=== PATIENT | female | born 1970 | race Caucasian/White ===

== ENCOUNTER 2017-11-20 10:48 | Outpatient (CLI) | payer MEDICAID ==
[2017-11-20 12:38] LABS: BASOPHILS # (AUTO) 0.1 10^3/uL (0.0-0.1); BASOPHILS % (AUTO) 0.8 %; EOSINOPHILS # (AUTO) 0.2 10^3/uL (0.0-0.7); EOSINOPHILS % (AUTO) 2.2 %; HGB - HEMOGLOBIN 14.9 g/dL (12.0-16.0); LYMPHOCYTES % (AUTO) 36.1 %; MEAN CORPUSCULAR HGB CONC 34.4 g/dL (32.0-36.0); MEAN CORPUSCULAR VOLUME 101.7 fL (81.0-99.0); MEAN PLATELET VOLUME 8.1 fL (7.9-10.8); MONOCYTES # (AUTO) 0.9 10^3/uL (0.0-1.0); MONOCYTES % (AUTO) 8.2 %; NEUTROPHILS # (AUTO) 5.9 10^3/uL (1.5-6.6); NEUTROPHILS % (AUTO) 52.7 %; PLT - PLATELET COUNT 267 10^3/uL (130-450); RED BLOOD COUNT 4.27 10^6/uL (4.20-5.40); RED CELL DISTRIBUTION WIDTH 13.4 % (12.0-15.0); WHITE BLOOD COUNT 11.1 x10^3/uL (4.8-10.8)
[2017-11-20 13:00] LABS: ALBUMIN 4.4 g/dL (3.2-5.5); ALBUMIN/GLOBULIN RATIO 1.3 (1.0-2.2); ALKALINE PHOSPHATASE 80 IU/L (42-121); ALT ALANINE AMINOTRANSFERASE 87 IU/L (10-60); AST ASPARTATE AMINOTRANSFERASE 59 IU/L (10-42); BILIRUBIN,TOTAL 0.9 mg/dL (0.2-1.0); BUN - BLOOD UREA NITROGEN 21 mg/dL (6-20); CALCIUM 9.2 mg/dL (8.5-10.3); CARBON DIOXIDE - CO2 23 mmol/L (21-32); CHLORIDE 104 mmol/L (101-111); CHOL/HDL RATIO 4.6 (<4.4); CHOLESTEROL 306 mg/dL; CREATININE 0.8 mg/dL (0.4-1.0); GFR - MDRD 77 (>89); GLUCOSE 92 mg/dL (70-100); HDL CHOLESTEROL 67 mg/dL; LDL CHOLESTEROL,CALCULATED 205 mg/dL; LDL/HDL RATIO 3.1 (<4.4); SODIUM 136 mmol/L (135-145); TOTAL PROTEIN 7.7 g/dL (6.7-8.2); VLDL CHOLESTEROL 34 mg/dL
== END 2017-11-20 10:49 | disposition home or self-care (01) ==
LOC: LAB.N 10:48
PROVIDERS: ATTEND Nurse Practitioner Gerontology
DX: E78.5 Hyperlipidemia, unspecified (principal); I10 Essential (primary) hypertension
CPT/HCPCS: 36415; 80050; 80061; 83721

== ENCOUNTER 2018-08-27 08:00 | Outpatient (CLI) | payer MEDICAID ==
[2018-08-27 13:22] LABS: BASOPHILS # (AUTO) 0.1 10^3/uL (0.0-0.1); BASOPHILS % (AUTO) 0.8 %; EOSINOPHILS # (AUTO) 0.3 10^3/uL (0.0-0.7); EOSINOPHILS % (AUTO) 2.4 %; HGB - HEMOGLOBIN 14.8 g/dL (12.0-16.0); LYMPHOCYTES # (AUTO) 3.9 10^3/uL (1.5-3.5); LYMPHOCYTES % (AUTO) 30.6 %; MEAN CORPUSCULAR HEMOGLOBIN 35.3 pg (27.0-31.0); MEAN CORPUSCULAR HGB CONC 34.7 g/dL (32.0-36.0); MEAN CORPUSCULAR VOLUME 101.6 fL (81.0-99.0); MEAN PLATELET VOLUME 8.5 fL (7.9-10.8); MONOCYTES # (AUTO) 1.1 10^3/uL (0.0-1.0); MONOCYTES % (AUTO) 8.9 %; NEUTROPHILS # (AUTO) 7.3 10^3/uL (1.5-6.6); NEUTROPHILS % (AUTO) 57.3 %; PLT - PLATELET COUNT 299 10^3/uL (130-450); RED CELL DISTRIBUTION WIDTH 13.9 % (12.0-15.0); WHITE BLOOD COUNT 12.8 x10^3/uL (4.8-10.8)
[2018-08-27 13:46] LABS: ALBUMIN 4.4 g/dL (3.2-5.5); ALBUMIN/GLOBULIN RATIO 1.3 (1.0-2.2); ALKALINE PHOSPHATASE 80 IU/L (42-121); ALT ALANINE AMINOTRANSFERASE 132 IU/L (10-60); AST ASPARTATE AMINOTRANSFERASE 81 IU/L (10-42); BILIRUBIN,TOTAL 0.7 mg/dL (0.2-1.0); BUN - BLOOD UREA NITROGEN 25 mg/dL (6-20); CALCIUM 9.7 mg/dL (8.5-10.3); CARBON DIOXIDE - CO2 21 mmol/L (21-32); CHLORIDE 107 mmol/L (101-111); CHOL/HDL RATIO 4.8 (<4.4); CHOLESTEROL 298 mg/dL; CREATININE 0.8 mg/dL (0.4-1.0); GFR - MDRD 76 (>89); GLUCOSE 111 mg/dL (70-100); HDL CHOLESTEROL 62 mg/dL; LDL CHOLESTEROL,CALCULATED 200 mg/dL; LDL/HDL RATIO 3.2 (<4.4); SODIUM 139 mmol/L (135-145); TOTAL PROTEIN 7.8 g/dL (6.7-8.2); VLDL CHOLESTEROL 36 mg/dL
== END 2018-08-27 23:59 | disposition home or self-care (01) ==
LOC: LAB.N 08:00
PROVIDERS: ATTEND Nurse Practitioner Gerontology
DX: R74.8 Abnormal levels of other serum enzymes (principal); F10.20 Alcohol dependence, uncomplicated; D53.9 Nutritional anemia, unspecified; E78.5 Hyperlipidemia, unspecified; I10 Essential (primary) hypertension; Z13.9 Encounter for screening, unspecified
CPT/HCPCS: 36415; 80050; 80061; 83721

== ENCOUNTER 2018-09-16 10:42 | Emergency (ER) | payer MEDICAID ==
[2018-09-16] MEDS ORDERED: KETOROLAC 60 MG/2 ML VIAL IM STA (12:30)
[2018-09-16] MEDS ORDERED: DEXAMETHASONE 10 MG/ML VIAL PO STA (12:31)
[2018-09-16] MEDS ORDERED: CHERRY SYRUP 10 ML UDC PO ONE (13:05)
[2018-09-16 13:26] VITALS: BP 112/76
--- NOTE | 2018-09-16 13:55 | ED Physician Documentation ---
PD HPI BACK PAIN - Stated complaint Stated Complaint: LOWER BACK PX - Chief complaint Chief Complaint: Back Pain - History obtained from History obtained from: Patient - History of Present Illness Timing - onset: How many days ago (4) Timing - duration: Days (4) Timing - details: Still present Location: Lower Quality: Pain Worsened by: Movement Similar symptoms before: Diagnosis (History of similar symptoms 2 1/2 years ago, that lasted for about one week.) - Additional information Additional information: The patient is a 48-year-old female who presents with lower back pain that started 4 days ago without any specific injury. The pain is all across her lower back, radiates down her right leg. It is worse with movement. She denies fever, urinary incontinence, numbness or weakness. She has a history of similar presentation 2-1/2 years ago, and was treated symptomatically for lower back pain. Her symptoms resolved in about one week. 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 surgery) - Present Medications Home Medications: Ambulatory Orders Medication Instructions Recorded Confirmed Aspirin [Aspir-Low] 81 mg PO DAILY 03/17/16 03/17/16 Cyclobenzaprine [Flexeril] 10 mg PO TID PRN #30 tablet 03/17/16 Dexamethasone [Decadron] 4 mg PO DAILY #5 tablet 03/17/16 Hydrocodone/Acetaminophen [[place]ine 1 each PO Q6H PRN #20 tablet 03/17/16 5-325 Tablet] Losartan Potassium 25 mg PO DAILY 03/17/16 03/17/16 Naproxen 375 mg PO BID #20 tablet 03/17/16 Simvastatin 20 mg PO DAILY 03/17/16 03/17/16 raNITIdine [Zantac] 150 mg PO DAILY 03/17/16 03/17/16 Cyclobenzaprine [Flexeril] 10 mg PO TID PRN #20 tablet 09/16/18 Hydrocodone/Acetaminophen 1 - 2 each PO Q6H PRN #14 tablet 09/16/18 [Hydrocodon-Acetaminophen 5-325] - Allergies Allergies/Adverse Reactions: Allergies Allergy/AdvReac Type Severity Reaction Status Date / Time cephalexin monohydrate * Allergy Hives Verified 09/16/18 11:24 [From Keflex] Penicillins Allergy Hives Verified 09/16/18 11:24 - Social History Does the pt smoke?: Yes Smoking Status: Current every day smoker Does the pt drink ETOH?: Yes Does the pt have substance abuse?: No - Immunizations Immunizations are current?: Yes - POLST Patient has POLST: No PD ED PE NORMAL - Vitals Vital signs reviewed: Yes (Borderline hypertension initially.) - General General: Alert and oriented X 3, Well developed/nourished, Other (Appears uncomfortable.) - HEENT HEENT: Atraumatic - Neck Neck: No bony TTP - Cardiac Cardiac: RRR - Respiratory Respiratory: No respiratory distress - Abdomen Abdomen: Soft, Non tender, Other (Rotund abdomen.) - Back Back: No CVA TTP, No spinal TTP, Other (There is tenderness to palpation in the paralumbar musculature, more on the right than the left. There is no tenderness to palpation along the spinous processes.) - Derm Derm: No rash - Extremities Extremities: No edema, No calf tenderness / cord, Other (This leg raise test is positive on the right at 20 elevation; negative on the left.) - Neuro Neuro: Alert and oriented X 3, No motor deficit, No sensory deficit Results - Vitals Vitals: Oxygen O2 Source Room air PD MEDICAL DECISION MAKING - ED course Complexity details: reviewed old records, re-evaluated patient, considered differential, d/w patient ED course: The patient's presentation is most consistent with acute lumbar strain. There may be a component of right-sided sciatica. Her clinical presentation does not suggest epidural abscess, cauda equina syndrome, or spinal stenosis. Treatment in the emergency department included administration of ketorolac 60 mg IM, and dexamethasone 10 mg orally. Her pain slightly improved with the above t reatment. She is being discharged with prescriptions for Flexeril and for Vicodin, 10 tablets. I discussed with her the expected course of injury, symptomatic treatment and outpatient follow-up, as well as potentially worrisome signs or symptoms that should prompt reevaluation in the emergency department. Departure - Departure Disposition: 01 Home, Self Care Clinical Impression: Acute myofascial strain of lumbar region Qualifiers: Encounter type: initial encounter Qualified Code(s): S39.012A - Strain of muscle, fascia and tendon of lower back, initial encounter Condition: Stable Instructions: ED Low Back Pain Injury Follow-Up: Jennifer Hernandez ARNP [Primary Care Provider] - Prescriptions: Cyclobenzaprine [Flexeril] 10 mg PO TID PRN #20 tablet PRN Reason: Spasms Hydrocodone/Acetaminophen [Hydrocodon-Acetaminophen 5-325] 1 - 2 each PO Q6H PRN #14 tablet PRN Reason: pain Comments: Apply ice pack to your lower back intermittently for the next 3 days. You can use ibuprofen, up to 800 mg 3 times daily for its anti-inflammatory effect. You can use Flexeril as prescribed if needed for muscle spasms. You can use Vicodin as prescribed if needed for pain. Let pain be your guide to activity level. Follow-up with your primary physician as planned. Return to the emergency department if you develop increasing back pain, urinary incontinence, or otherwise worsening symptoms. Discharge Date/Time: 09/16/18 14:01
== END 2018-09-16 14:01 | disposition home or self-care (01) ==
LOC: ED 10:42
DX: S39.012A Strain of muscle, fascia and tendon of lower back, initial encounter (principal); X58.XXXA Exposure to other specified factors, initial encounter; I10 Essential (primary) hypertension; E78.00 Pure hypercholesterolemia, unspecified; Z79.82 Long term (current) use of aspirin; F17.200 Nicotine dependence, unspecified, uncomplicated
CPT/HCPCS: 96372; 99283; A9270

== ENCOUNTER 2018-11-05 08:00 | Outpatient (CLI) | payer MEDICAID ==
[2018-11-05 13:13] LABS: ALBUMIN 4.1 g/dL (3.2-5.5); ALBUMIN/GLOBULIN RATIO 1.2 (1.0-2.2); BILIRUBIN,TOTAL 0.7 mg/dL (0.2-1.0); CALCIUM 9.7 mg/dL (8.5-10.3); CREATININE 0.8 mg/dL (0.4-1.0); TOTAL PROTEIN 7.4 g/dL (6.7-8.2)
== END 2018-11-05 23:59 | disposition home or self-care (01) ==
LOC: LAB.N 08:00
PROVIDERS: ATTEND Nurse Practitioner Gerontology
DX: R94.4 Abnormal results of kidney function studies (principal); R74.8 Abnormal levels of other serum enzymes
CPT/HCPCS: 36415; 80053

== ENCOUNTER 2018-11-26 08:19 | Outpatient (CLI) | payer MEDICAID ==
--- NOTE | 2018-11-26 18:04 | Ultrasound Report ---
Reason: ELEVATED LIVER ENZYMES Procedure Date: 11/26/2018 Accession Number: [id number] / [id number] Procedure: US - Abdomen Limited CPT Code: FULL RESULT: EXAM: ABDOMEN ULTRASOUND LIMITED, RUQ EXAM DATE: 11/26/2018 09:05 AM. CLINICAL HISTORY: ELEVATED LIVER ENZYMES. COMPARISON: None. TECHNIQUE: Real-time scanning was performed with static images obtained. FINDINGS: Liver: Increased both in size and echotexture. 18.2 cm. Main portal vein flow: Hepatopetal. Gallbladder: Multiple mobile stones. Gallbladder wall thickness 2.1 mm. Biliary System: CBD measures 4.4 mm. No intrahepatic or extrahepatic ductal dilatation. Free fluid: None. Right kidney, 10.7 cm longitudinally. No hydronephrosis. IMPRESSION: 1. Hepatomegaly with fatty infiltration of the liver. 2. Cholelithiasis. RADIA
== END 2018-11-26 08:20 | disposition home or self-care (01) ==
LOC: DI 08:19
PROVIDERS: ATTEND Nurse Practitioner Gerontology
DX: K76.0 Fatty (change of) liver, not elsewhere classified (principal); K80.20 Calculus of gallbladder without cholecystitis without obstruction
CPT/HCPCS: 76705

== ENCOUNTER 2019-03-30 12:54 | Emergency (ER) | payer MEDICAID ==
[2019-03-30] MEDS ORDERED: TETANUS/DIPHTHERIA/PERTUSSIS 0.5 ML SYRINGE IM ONE (13:48)
--- NOTE | 2019-03-30 13:51 | ED Physician Documentation ---
History of Present Illness - Stated complaint Stated Complaint: BILAT ANKLE/FOOT PX - Chief complaint Chief Complaint: Ext Problem - History obtained from History obtained from: Patient, Family - History of Present Illness Timing: Yesterday Pain level max: 6 Pain level now: 5 - Additonal information Additional information: 48-year-old female presents to the emergency department bilateral ankle and foot pain. She states [place] the [place] in [place] when she tripped and fell. Has abrasions to the bilateral knees. Her ankles are both hurting, left is hurting more than the right. Mainly on the lateral aspect. Bilateral feet are hurting as well. The right is worse than the left, mainly around the fourth toe. Difficulty walking today secondary to pain. 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 (Cervical surgery) - Present Medications Home Medications: Ambulatory Orders Medication Instructions Recorded Confirmed Aspirin [Aspir-Low] 81 mg PO DAILY 03/17/16 03/17/16 Cyclobenzaprine [Flexeril] 10 mg PO TID PRN #30 tablet 03/17/16 Hydrocodone/Acetaminophen [[place] 1 each PO Q6H PRN #20 tablet 03/17/16 5-325 Tablet] Losartan Potassium 25 mg PO DAILY 03/17/16 03/17/16 Naproxen 375 mg PO BID #20 tablet 03/17/16 Simvastatin 20 mg PO DAILY 03/17/16 03/17/16 dexAMETHasone [Decadron] 4 mg PO DAILY #5 tablet 03/17/16 raNITIdine [Zantac] 150 mg PO DAILY 03/17/16 03/17/16 Cyclobenzaprine [Flexeril] 10 mg PO TID PRN #20 tablet 09/16/18 Hydrocodone/Acetaminophen 1 - 2 each PO Q6H PRN #14 tablet 09/16/18 [Hydrocodon-Acetaminophen 5-325] Hydrocodone/Acetaminophen 1 - 2 each PO Q6H PRN #14 tablet 03/30/19 [Hydrocodon-Acetaminophen 5-325] Ibuprofen [Motrin] 800 mg PO Q8H PRN #30 tablet 03/30/19 - Allergies Allergies/Adverse Reactions: Allergies Allergy/AdvReac Type Severity Reaction Status Date / Time cephalexin monohydrate * Allergy Hives Verified 03/30/19 13:01 [From Keflex] Penicillins Allergy Hives Verified 03/30/19 13:01 - Social History Does the pt smoke?: Yes Smoking Status: Current every day smoker Does the pt drink ETOH?: Yes Does the pt have substance abuse?: No - Immunizations Immunizations are current?: Yes - POLST Patient has POLST: No PD ED PE NORMAL - Vitals Vital signs reviewed: Yes - General General: Alert and oriented X 3, No acute distress, Well developed/nourished - HEENT HEENT: Moist mucous membranes - Neck Neck: Supple, no meningeal sign - Cardiac Cardiac: RRR, Strong equal pulses - Respiratory Respiratory: No respiratory distress, Clear bilaterally - Abdomen Abdomen: Soft, Non tender, Non distended - Derm Derm: Warm and dry - Extremities Extremities: Other (Tenderness to palpation over the left ankle, lateral malleolus. Mild swelling. Also tenderness palpation over the right fourth toe. No swelling or deformity. Does have some swelling at the proximal aspect of the fourth metatarsal. This is of the right foot. Mild tenderness over the right ankle, lateral malleolus as well. Also mild tenderness over the dorsum of the left foot. Neurovascular intact. Abrasions present to the bilateral knees. Full range of motion without pain. No bony tenderness. No joint effusion. Ligaments intact) - Neuro Neuro: Alert and oriented X 3 - Psych Psych: Normal mood, Normal affect Results - Vitals Vitals: Vital Signs - 24 hr 03/30/19 03/30/19 12:58 15:44 Temperature 36.4 C L Heart Rate 94 73 Respiratory 19 14 Rate Blood Pressure 115/73 115/69 O2 Saturation 97 98 Oxygen O2 Source Room air - Rads (name of study) B foot xray Radiology: Prelim report reviewed, EMP read contemporaneously, See rad report (No evidence for acute fracture or dislocation of the B feet) B ankle xray Radiology: Prelim report reviewed, EMP read contemporaneously, See rad report (1. Possible subtle nondisplaced transverse lateral malleolar fracture is evident. 2. Moderate soft tissue swelling at the lateral aspect of the ankle. 3. No right ankle fracture is seen. ) Procedures - Splint (location) L ankle Splint applied by: Physician, Tech Type of splint: Fiberglass, Short leg, Posterior, Stirrup Other: Patient tolerated well, No complications, Neurovascular intact, Crutches provided PD MEDICAL DECISION MAKING - ED course Complexity details: reviewed results, re-evaluated patient, considered differential, d/w patient ED course: Tdap given. Wound care instructions given at bedside. This is for the abrasions to the bilateral knees. No acute findings on foot x-ray bilaterally. Possible distal fibular fracture. Placed in a splint. We will follow-up with orthopedics. Pain well controlled patient counseled regarding signs and symptoms for which I believe and urgent re-evaluation would be necessary. Patient with good understanding of and agreement to plan and is comfortable going home at this time This document was made in part using voice recognition software. While efforts are made to proofread this document, sound alike and grammatical errors may occur. Departure - Departure Disposition: 01 Home, Self Care Clinical Impression: Left fibular fracture Qualifiers: Encounter type: initial encounter Fibula location: lateral malleolus Fracture type: closed Fracture alignment: nondisplaced Qualified Code(s): S82.65XA - Nondisplaced fracture of lateral malleolus of left fibula, initial encounter for closed fracture Right ankle sprain Qualifiers: Encounter type: initial encounter Involved ligament of ankle: unspecified ligament Qualified Code(s): S93.401A - Sprain of unspecified ligament of right ankle, initial encounter Foot sprain Qualifiers: Encounter type: initial encounter Laterality: unspecified laterality Qualified Code(s): S93.609A - Unspecified sprain of unspecified foot, initial encounter Condition: Good Instructions: ED Sprain Ankle W X Ray, ED Sprain Foot, ED Fx Lower Ext Follow-Up: Jennifer Hernandez ARNP [Primary Care Provider] - [facility] [Provider Group] - Within 1 week Prescriptions: Hydrocodone/Acetaminophen [Hydrocodon-Acetaminophen 5-325] 1 - 2 each PO Q6H PRN #14 tablet PRN Reason: pain Ibuprofen [Motrin] 800 mg PO Q8H PRN #30 tablet PRN Reason: PAIN &/OR FEVER Comments: Return if you worsen. Use the crutches to help you at home. Do not bear weight until released by orthopedics. Do not drink alcohol or drive while on narcotic pain medicine. Note that many narcotic pain relievers also contain tylenol/acetaminophen. Please ensure that your total dose of acetaminophen from all sources does not exceed 3 grams (3000mg) per day. You may constipated on this medication, take a stool softener such as "Colace" twice a day while you are on it. Also recommend a yryn-jyq-lwdeixp laxative such as senna or MiraLAX any day that you do not have a bowel movement. If you received narcotic pain medication in the emergency department, do not drive or operate machinery for the next 24 hours. Discharge Date/Time: 03/30/19 15:52
--- NOTE | 2019-03-30 14:30 | XRAY Report ---
Reason: fall, B foot and ankle pain Procedure Date: 03/30/2019 Accession Number: [id number] / [id number] Procedure: XR - Ankle 3 View BILAT CPT Code: FULL RESULT: EXAMS: 1. Right Ankle Radiography 2. Left Ankle Radiography EXAM DATE: 03/30/2019 01:51 PM. CLINICAL HISTORY: Fall, B foot and ankle pain. COMPARISON: None. TECHNIQUE: 3 views each ankle. FINDINGS: Right Ankle: Bones: Plantar calcaneal spur noted. No acute fracture lines of the right ankle. Joints: Normal. No effusion. No subluxations. The ankle mortise is normally aligned. Soft Tissues: Normal. No soft tissue swelling. Left Ankle: Bones: Plantar calcaneal spur noted. Subtle transverse lucency at the lateral malleolus reflect a subtle nondisplaced fracture. No other fracture lines are evident. Joints: Normal alignment of the ankle mortise. No joint effusion or subluxation is seen. Soft Tissues: Moderate soft tissue swelling at the lateral aspect of the ankle. IMPRESSION: 1. Possible subtle nondisplaced transverse lateral malleolar fracture is evident. 2. Moderate soft tissue swelling at the lateral aspect of the ankle. 3. No right ankle fracture is seen. RADIA
--- NOTE | 2019-03-30 14:32 | XRAY Report ---
Reason: fall, B foot and ankle pain Procedure Date: 03/30/2019 Accession Number: [id number] / [id number] Procedure: XR - Foot 3 View BILAT CPT Code: FULL RESULT: EXAMS: 1. Right Foot Radiography 2. Left Foot Radiography EXAM DATE: 03/30/2019 01:51 PM. CLINICAL HISTORY: Fall, B foot and ankle pain. COMPARISON: ANKLE 3 VIEW BILAT 03/30/2019 1:51 PM. TECHNIQUE: 3 views each foot. FINDINGS: Right: Bones: Enter calcaneal spur noted. No fractures or bone lesions. Joints: Normal. No subluxations. Soft Tissues: Normal. No soft tissue swelling. Left: Bones: Plantar calcaneal spur noted. No fractures or bone lesions. Joints: Normal. No subluxations. Soft Tissues: Normal. No soft tissue swelling. IMPRESSION: No evidence for acute fracture or dislocation of the bilateral feet. RADIA
[2019-03-30] MEDS ORDERED: HYDROcod/ACETAM 5/325 MG TABLET PO STA (14:59)
[2019-03-30 15:45] VITALS: BP 115/69
== END 2019-03-30 15:52 | disposition home or self-care (01) ==
LOC: ED 12:54
DX: S80.212A Abrasion, left knee, initial encounter (principal); S80.211A Abrasion, right knee, initial encounter; S82.65XA Nondisplaced fracture of lateral malleolus of left fibula, initial encounter for closed fracture; S93.401A Sprain of unspecified ligament of right ankle, initial encounter; S93.609A Unspecified sprain of unspecified foot, initial encounter; W01.0XXA Fall on same level from slipping, tripping and stumbling without subsequent striking against object, initial encounter; Y93.89 Activity, other specified; Y92.488 Other paved roadways as the place of occurrence of the external cause; F17.200 Nicotine dependence, unspecified, uncomplicated; I10 Essential (primary) hypertension
CPT/HCPCS: 29515; 73610; 73630; 90715; 99283; 99284; A9270

== ENCOUNTER 2019-07-25 07:23 | Day surgery (SDC) | payer MEDICAID ==
[2019-07-25] MEDS ORDERED: ONDANSETRON 4 MG/2 ML VIAL IVP STA ×2 (07:44→16:08)
[2019-07-25] MEDS ORDERED: MORPHINE 2 MG/ML CARPUJECT IVP STA (07:44)
[2019-07-25] MEDS ORDERED: SODIUM CHLORIDE 0.9% 1,000 ML IV ONE ×2 (07:44→20:10)
--- NOTE | 2019-07-25 07:46 | ED Physician Documentation ---
History of Present Illness - Stated complaint Stated Complaint: R SIDE PAIN - Chief complaint Chief Complaint: Abd Pain - Additonal information Additional information: This is a 49-year-old female with a history of a past hysterectomy, and my ocarditis as a child, who presents with right upper quadrant pain. She states that she had a bit of pain several days ago but this subsided so she did not come into the emergency department. This morning the pain woke her from sleep it is sharp, seems to radiate from the upper right side of her abdomen towards her neck. It is severe and worse with movement or pressure on her abdomen. She has not had vomiting. She denies diarrhea. No fever. She has not noticed any blood in her urine, no dysuria. 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 surgery) - Present Medications Home Medications: Ambulatory Orders Medication Instructions Recorded Confirmed Losartan Potassium 100 mg PO DAILY 03/17/16 03/17/16 Hydrochlorothiazide 12.5 mg PO DAILY 07/25/19 Omeprazole 20 mg PO 07/25/19 Sertraline [Zoloft] 25 mg PO DAILY 07/25/19 - Allergies Allergies/Adverse Reactions: Allergies Allergy/AdvReac Type Severity Reaction Status Date / Time cephalexin monohydrate * Allergy Hives Verified 07/25/19 07:36 [From Keflex] Penicillins Allergy Hives Verified 07/25/19 07:36 - Social History Does the pt smoke?: Yes Smoking Status: Current every day smoker Does the pt drink ETOH?: Yes Does the pt have substance abuse?: No - Immunizations Immunizations are current?: Yes - POLST Patient has POLST: No PD ED PE NORMAL - Vitals Vital signs reviewed: Yes - General General: Alert and oriented X 3, Other (Uncomfortable but nontoxic-appearing female) - HEENT HEENT: Atraumatic, PERRL - Neck Neck: Supple, no meningeal sign - Cardiac Cardiac: RRR - Respiratory Respiratory: No respiratory distress, Clear bilaterally - Abdomen Abdomen: Soft, Non distended, Other (Focally tender in the right upper quadrant with guarding and positive Alvarez sign. Remainder of abdomen is nontender) - Derm Derm: Warm and dry - Extremities Extremities: No deformity - Neuro Neuro: Alert and oriented X 3 - Psych Psych: Normal mood, Normal affect Results - Vitals Vitals: Vital Signs - 24 hr 07/25/19 07/25/19 07/25/19 17:53 19:35 21:33 Temperature 36.5 C 36.9 C 36.3 C L Heart Rate 84 69 85 Respiratory 16 20 15 Rate Blood Pressure 150/68 H 164/96 H 98/55 L O2 Saturation 98 100 95 07/25/19 07/25/19 07/25/19 21:40 21:45 21:50 Temperature 36.1 C L 36.2 C L 36.3 C L Heart Rate 82 89 88 Respiratory 18 15 18 Rate Blood Pressure 132/98 H 107/77 110/70 O2 Saturation 96 97 96 07/25/19 07/25/19 07/25/19 22:00 22:13 22:49 Temperature 36.5 C 36.8 C Heart Rate 75 72 59 L Respiratory 17 16 18 Rate Blood Pressure 122/60 104/63 114/65 O2 Saturation 97 97 92 07/26/19 07/26/19 07/26/19 00:55 02:10 03:11 Temperature 36.5 C 36.9 C 36.5 C Heart Rate 59 L 56 L 56 L Respiratory 18 18 18 Rate Blood Pressure 138/75 H 129/74 130/88 H O2 Saturation 94 94 96 07/26/19 07:19 Temperature 37.0 C Heart Rate 67 Respiratory 16 Rate Blood Pressure 118/78 O2 Saturation 97 Oxygen O2 Source Room air - Labs Labs: Microbiology 07/25/19 07:37 Urine Culture - Preliminary Urine,Clean Catch Escherichia Coli Laboratory Tests 07/25/19 07/25/19 07/25/19 07:37 07:45 07:45 WBC 13.8 H RBC 4.20 Hgb 15.2 Hct 43.2 MCV 102.9 H MCH 36.2 H MCHC 35.2 RDW 12.8 Plt Count 325 MPV 9.9 Neut # (Auto) 6.3 Lymph # (Auto) 5.6 H Perry # (Auto) 1.1 H Eos # (Auto) 0.5 Baso # (Auto) 0.2 H Absolute Nucleated RBC 0.00 Nucleated RBC % 0.0 Manual Slide Review Indicated RBC Morph Micro Appear 2+ ANISOCYTOSIS PT 10.8 INR 0.9 Sodium Potassium Chloride Carbon Dioxide Anion Gap BUN Creatinine Estimated GFR (MDRD) Glucose Calcium Total Bilirubin AST ALT Alkaline Phosphatase Total Protein Albumin Globulin Albumin/Globulin Ratio Lipase Urine Color YELLOW Urine Clarity CLEAR Urine pH 6.0 Ur Specific Williams 1.020 Urine Protein NEGATIVE Urine Glucose (UA) NEGATIVE Urine Ketones NEGATIVE Urine Occult Blood NEGATIVE Urine Nitrite POSITIVE H Urine Bilirubin NEGATIVE Urine Urobilinogen 0.2 (NORMAL) Ur Leukocyte Esterase TRACE H Urine RBC 0-5 Urine WBC 6-10 H Ur Squamous Epith Cells FEW Squamous Urine Bacteria Few Ur Microscopic Review INDICATED Urine Culture Comments INDICATED Urine HCG, Qual NEGATIVE 07/25/19 07/25/19 07/25/19 07:45 17:55 17:55 WBC 17.6 H RBC 3.91 L Hgb 13.9 Hct 40.5 MCV 103.6 H MCH 35.5 H MCHC 34.3 RDW 13.0 Plt Count 295 MPV 9.9 Neut # (Auto) 13.6 H Lymph # (Auto) 2.5 Perry # (Auto) 1.1 H Eos # (Auto) 0.1 Baso # (Auto) 0.1 Absolute Nucleated RBC 0.00 Nucleated RBC % 0.0 Manual Slide Review RBC Morph Micro Appear PT INR Sodium 142 143 Potassium 3.5 3.6 Chloride 106 108 Carbon Dioxide 23 24 Anion Gap 13.0 11.0 BUN 26 H 21 H Creatinine 0.9 0.8 Estimated GFR (MDRD) 66 L 76 L Glucose 129 H 121 H Calcium 9.9 9.5 Total Bilirubin 0.9 1.0 AST 44 H 52 H ALT 58 67 H Alkaline Phosphatase 93 74 Total Protein 7.7 7.8 Albumin 4.2 4.4 Globulin 3.5 3.4 Albumin/Globulin Ratio 1.2 1.3 Lipase 36 26 Urine Color Urine Clarity Urine pH Ur Specific Williams Urine Protein Urine Glucose (UA) Urine Ketones Urine Occult Blood Urine Nitrite Urine Bilirubin Urine Urobilinogen Ur Leukocyte Esterase Urine RBC Urine WBC Ur Squamous Epith Cells Urine Bacteria Ur Microscopic Review Urine Culture Comments Urine HCG, Qual - Rads (name of study) US RUQ Radiology: Other (Cholethiasis without clear signs of cholecystitis. Mild CBD dilation) CT abd/pelvis Radiology: Other (Hepatic steatosis, normal gallbladder) MRCP Radiology: Other (Multiple gallstones and gallstone in neck of gallblader. No filling defect in CBD) PD MEDICAL DECISION MAKING - ED course Complexity details: considered differential (Cholecystitis, cholelithiasis, biliary colic, choledocholithiasis, pancreatitis, gastritis, nephrolithiasis, pyelonephritis) ED course: Pt presents wtih RUQ pain, concerning for cholecystitis. Initial labs show leukocytosis and mild AST elevation. US shows gallstones without cholecystitis, and some fatty liver, which could explain the mild AST elevation. I still have high suspicion for abdominal pathology and patient is is significant pain, she has required multiple doses of narcotic medication and anti-emetic. She was also given IV fluids. CT abd/pelvis unremarkable. Given her mildly elevated CBD, I am concerned for cholecystitis vs. choledocolithiasis, so MRCP was ordered. Pt required multiple more doses of pain meds while waiting for MR. It showed gallstone in the neck without obvious blockage of the duct. Her labs now show untrending leukocytosis and LFTs, consistent with cholecystitis. I consulted Dr. Cortez who promptly planned for cholecystectomy. Pt agrees with the plan and was transferred to the OR. Prior to transfer she was given cipro and flagyl, as she has a pencillin allergy. Departure - Departure Disposition: ED Transfer to [facility] Clinical Impression: Cholecystitis Condition: Good Discharge Date/Time: 07/25/19 19:46
[2019-07-25 07:54] LABS: BASOPHILS # (AUTO) 0.2 10^3/uL (0.0-0.1); BASOPHILS % (AUTO) 1.2 %; EOSINOPHILS # (AUTO) 0.5 10^3/uL (0.0-0.7); EOSINOPHILS % (AUTO) 3.5 %; HGB - HEMOGLOBIN 15.2 g/dL (12.0-16.0); LYMPHOCYTES # (AUTO) 5.6 10^3/uL (1.5-3.5); LYMPHOCYTES % (AUTO) 40.5 %; MEAN CORPUSCULAR HEMOGLOBIN 36.2 pg (27.0-31.0); MEAN CORPUSCULAR HGB CONC 35.2 g/dL (32.0-36.0); MEAN CORPUSCULAR VOLUME 102.9 fL (81.0-99.0); MEAN PLATELET VOLUME 9.9 fL (7.9-10.8); MONOCYTES # (AUTO) 1.1 10^3/uL (0.0-1.0); MONOCYTES % (AUTO) 8.2 %; NEUTROPHILS # (AUTO) 6.3 10^3/uL (1.5-6.6); NEUTROPHILS % (AUTO) 45.7 %; PLT - PLATELET COUNT 325 10^3/uL (130-450); RED CELL DISTRIBUTION WIDTH 12.8 % (12.0-15.0); WHITE BLOOD COUNT 13.8 x10^3/uL (4.8-10.8)
[2019-07-25 07:58] LABS: BILIRUBIN,URINE NEGATIVE (NEGATIVE); GLUCOSE, URINE (UA) NEGATIVE (NEGATIVE); KETONES,URINE (UA) NEGATIVE (NEGATIVE); LEUKOCYTE ESTERASE, URINE TRACE (NEGATIVE); NITRITE,URINE POSITIVE (NEGATIVE); OCCULT BLOOD,URINE NEGATIVE (NEGATIVE); PROTEIN,URINE NEGATIVE (NEGATIVE); UROBILINOGEN,URINE 0.2 (NORMAL) E.U./dL (NORMAL)
[2019-07-25 08:00] LABS: INR 0.9 (0.8-1.2); PT - PROTHROMBIN TIME 10.8 secs (9.9-12.6)
[2019-07-25 08:01] LABS: CLARITY,URINE CLEAR (CLEAR); HCG UR QUAL NEGATIVE
[2019-07-25 08:08] LABS: ALBUMIN 4.2 g/dL (3.2-5.5); ALBUMIN/GLOBULIN RATIO 1.2 (1.0-2.2); BILIRUBIN,TOTAL 0.9 mg/dL (0.2-1.0); CALCIUM 9.9 mg/dL (8.5-10.3); CREATININE 0.9 mg/dL (0.4-1.0); TOTAL PROTEIN 7.7 g/dL (6.7-8.2)
[2019-07-25 08:11] LABS: BACTERIA,URINE Few /HPF (None Seen); RBC,URINE 0-5 /HPF (0-5); SQUAMOUS EPITHELIAL CELL,UR FEW Squamous (<= Few)
[2019-07-25 08:16] LABS: RBC MORPHOLOGY (MULTIPLE) 2+ ANISOCYTOSIS (NORMAL)
[2019-07-25] MEDS ORDERED: HYDROmorphone 1 MG/ML CARPUJECT IVP STA ×6 (08:37→16:53)
--- NOTE | 2019-07-25 09:43 | Ultrasound Report ---
Reason: RUQ pain, concern for cherry Procedure Date: 07/25/2019 Accession Number: [id number] / [id number] Procedure: US - Abdomen Limited CPT Code: Final Report FULL RESULT: EXAM: ABDOMEN ULTRASOUND LIMITED, RUQ EXAM DATE: 07/25/2019 09:29 AM. CLINICAL HISTORY: Right upper quadrant pain, concern for cholelithiasis. COMPARISON: None. TECHNIQUE: Real-time scanning was performed with static images obtained. FINDINGS: Liver: Hepatic parenchyma is echogenic with coarsening of echotexture, this limits evaluation for underlying masses though none are seen. Geographically, the gallbladder fossa parenchyma appears relatively decreased in echogenicity, focal fatty sparing. Liver is visually large, spanning up to 17.9 cm. Main portal vein flow: Hepatopetal. Gallbladder: The gallbladder contains calculi and is mildly distended with imperceptibly thin wall and no pericholecystic fluid. A 1 cm calculus is seen by the gallbladder neck, mobility could not be assessed. The sonographic Alvarez's sign could not be reliably assessed as the patient had received pain medication. Biliary System: CBD measures 8 mm. No intrahepatic or extrahepatic ductal dilatation. Other: Right kidney demonstrates no hydronephrosis and measures up to 10.1 cm as seen. IMPRESSION: Cholelithiasis with the sonographic examination unable to be assessed makes the examination formally equivocal regarding acute cholecystitis. The common bile duct is dilated up to 0.8 cm, above normal. This is suspicious for choledocholithiasis. Hepatic steatosis. RADIA The call report notification system was initiated by Dr. Bienvenido Bedolla at 09:42 AM on 07/25/2019. The above call report findings were discussed with Garrett Bah by Dr. Bienvenido Bedolla at 09:47 AM on 07/25/2019.
[2019-07-25] MEDS ORDERED: IOVERSOL 320 100 ML VIAL IVP ONE ×2 (10:04→10:40)
--- NOTE | 2019-07-25 11:11 | CT Report ---
Reason: RUQ abd pain Procedure Date: 07/25/2019 Accession Number: [id number] / [id number] Procedure: CT - Abdomen/Pelvis W CPT Code: Final Report FULL RESULT: EXAM: CT ABDOMEN AND PELVIS EXAM DATE: 07/25/2019 10:28 AM. CLINICAL HISTORY: RUQ abd pain. COMPARISONS: Limited abdominal ultrasound performed earlier on 07/25/2019.. TECHNIQUE: Routine helical CT imaging was performed through the abdomen and pelvis. IV contrast: OPTI 320 90ML. Enteric contrast: None. Reconstructions: Coronal and sagittal. In accordance with CT protocol optimization, one or more of the following dose reduction techniques were utilized for this exam: automated exposure control, adjustment of mA and/or KV based on patient size, or use of iterative reconstructive technique. FINDINGS: Lung Bases: Unremarkable. Liver: Diffuse low attenuation compatible with fatty infiltration or other hepatocellular disease. No focal lesions. Gallbladder/Bile Ducts: Unremarkable by CT. Gallstones seen on prior ultrasounds are not radiodense and therefore not seen by CT. Spleen: Nonspecific lobular contour to spleen. This is of uncertain clinical significance. Could reflect prior trauma. No focal lesions. Pancreas: Normal. Adrenal Glands: Normal. Kidneys: Normal. No masses or hydronephrosis. Peritoneal Cavity/Bowel: No free fluid, free air or adenopathy. No masses or acute inflammatory process. Several top normal caliber small bowel loops are noted in the left mid/upper abdomen without abrupt transition point. No evidence of obstruction. The appendix is well visualized and normal. Scattered sigmoid colonic diverticula without surrounding inflammatory changes Pelvic Organs: Urinary bladder is incompletely distended but grossly unremarkable. There appears to be a 1.3 cm cyst associated with the left seminal vesicle or sigmoid colon (6/40; 4/71), uncertain clinical significance. Vasculature: Moderate atherosclerotic calcifications of the abdominal aorta and iliac vessels. No aneurysms or other significant abnormality. Bones: No acute abnormality. Other: None. IMPRESSION: 1. Normal CT appearance of gallbladder. Note that gallstones seen on prior ultrasounds are not seen by CT technique. 2. Diffuse low attenuation of liver compatible with fatty infiltration or other hepatocellular disease. 3. Diverticulosis without evidence of diverticulitis. 4. Other findings as above. RADIA
[2019-07-25] MEDS ORDERED: HYDROmorphone 1 MG/ML CARPUJECT ONE (16:32)
[2019-07-25 18:01] LABS: BASOPHILS # (AUTO) 0.1 10^3/uL (0.0-0.1); BASOPHILS % (AUTO) 0.7 %; EOSINOPHILS # (AUTO) 0.1 10^3/uL (0.0-0.7); EOSINOPHILS % (AUTO) 0.3 %; HGB - HEMOGLOBIN 13.9 g/dL (12.0-16.0); LYMPHOCYTES # (AUTO) 2.5 10^3/uL (1.5-3.5); LYMPHOCYTES % (AUTO) 14.3 %; MEAN CORPUSCULAR HEMOGLOBIN 35.5 pg (27.0-31.0); MEAN CORPUSCULAR HGB CONC 34.3 g/dL (32.0-36.0); MEAN CORPUSCULAR VOLUME 103.6 fL (81.0-99.0); MEAN PLATELET VOLUME 9.9 fL (7.9-10.8); MONOCYTES # (AUTO) 1.1 10^3/uL (0.0-1.0); MONOCYTES % (AUTO) 6.3 %; NEUTROPHILS # (AUTO) 13.6 10^3/uL (1.5-6.6); NEUTROPHILS % (AUTO) 77.4 %; PLT - PLATELET COUNT 295 10^3/uL (130-450); RED BLOOD COUNT 3.91 10^6/uL (4.20-5.40); WHITE BLOOD COUNT 17.6 x10^3/uL (4.8-10.8)
--- NOTE | 2019-07-25 18:06 | MRI Report ---
Reason: Concern for choledocholithiasis Procedure Date: 07/25/2019 Accession Number: [id number] / [id number] Procedure: MRI - MRCP W/O CPT Code: Final Report FULL RESULT: EXAM: MR ABDOMEN WITHOUT CONTRAST (MR CHOLANGIOPANCREATOGRAPHY) EXAM DATE: 07/25/2019 05:21 PM. CLINICAL HISTORY: Concern for choledocholithiasis. COMPARISON: ABDOMEN/PELVIS W/ 07/25/2019 10:25 AM. TECHNIQUE: Multiplanar breath-hold T1 and T2 sequences obtained through the abdomen on an MR scanner. Dedicated 2D and 3D MRCP sequences obtained through the biliary and pancreatic ducts. No intravenous contrast given. FINDINGS: Lung Bases: The lung bases are clear. Liver: The liver has normal size, morphology and signal. No evidence of mass. The intrahepatic bile ducts appear normal. CBD: The extrahepatic ducts appear normal. The CBD is 9 mm in diameter. Gallbladder: Multiple gallstones are seen within the gallbladder lumen. There is a gallstone in the region of the neck of the gallbladder (image 17 of series 501). CBD measures 9 mm at the level of pancreatic head and distally. Mildly dilated however here is no meniscus sign to suggest CBD calculus. Pancreas: The pancreas appears normal with no mass. The pancreatic duct measures 3 mm in diameter and appears normal with no stone or stricture. Spleen: The spleen appears normal. Kidneys and Adrenals: The kidneys appear normal with no mass or hydronephrosis. There are no cysts in the kidneys. The adrenals appear normal. Bowel: The small bowel and colon appear normal with no inflammation or obstruction. Retroperitoneum: The retroperitoneal structures appear normal with no mass or lymphadenopathy. IMPRESSION: Multiple gallstones. A gallstone the neck of gallbladder. Mildly prominent CBD at pancreatic head and distally measuring up to 9 mm. No filling defect or meniscus sign to suggest CBD calculus. Normal pancreatic duct. RADIA
[2019-07-25] MEDS ORDERED: metroNIDAZOLE 500 MG/100 ML 500 MG/100 ML BAG IV ONE (18:13)
[2019-07-25] MEDS ORDERED: CIPROFLOXACIN 400 MG/200 ML 200 ML IV ONE (18:13)
[2019-07-25 18:15] LABS: ALBUMIN 4.4 g/dL (3.2-5.5); ALBUMIN/GLOBULIN RATIO 1.3 (1.0-2.2); CALCIUM 9.5 mg/dL (8.5-10.3); CREATININE 0.8 mg/dL (0.4-1.0); TOTAL PROTEIN 7.8 g/dL (6.7-8.2)
[2019-07-25] MEDS ORDERED: LACTATED RINGERS 1,000 ML IV STA (18:15)
--- NOTE | 2019-07-25 19:00 | CONSULTATION NOTE ---
Referring Provider Name of Referring Provider:: Niurka Consult Date: 07/25/19 Chief Complaint - Chief Complaint Chief Complaint: Acute cholecystitis/lithiasis History of Present Illness - Admitted From Admitted From:: ED - History of Present Illness HPI Comment/Other: This is a 49-year-old female with a history of a past hysterectomy, and myocar ditis as a child, who presents with right upper quadrant pain. She states that she had a bit of pain several days ago but this subsided so she did not come into the emergency department. This morning the pain woke her from sleep it is sharp, seems to radiate from the upper right side of her abdomen towards her neck. It is severe and worse with movement or pressure on her abdomen. She has not had vomiting. She denies diarrhea. No fever. She has not noticed any blood in her urine, no dysuria. 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: Hysterectomy, LEEP (Cervical surgery) - POLST Patient has POLST: No Meds/Allgy - Home Medications Home Medications: Ambulatory Orders Medication Instructions Recorded Confirmed Losartan Potassium 100 mg PO DAILY 03/17/16 03/17/16 Hydrochlorothiazide 12.5 mg PO DAILY 07/25/19 Omeprazole 20 mg PO 07/25/19 Sertraline [Zoloft] 25 mg PO DAILY 07/25/19 - Allergies Allergies/Adverse Reactions: Allergies Allergy/AdvReac Type Severity Reaction Status Date / Time cephalexin monohydrate * Allergy Hives Verified 07/25/19 07:36 [From Keflex] Penicillins Allergy Hives Verified 07/25/19 07:36 Review of Systems - Gastrointestinal Gastrointestinal: reports: Abdominal pain Exam - Vital Signs Vital Signs: Vital Signs x48h Temp Pulse Resp BP Pulse Ox 07/25/19 17:53 36.5 C 84 16 150/68 H 98 07/25/19 15:15 36.5 C 49 L 15 139/81 H 95 07/25/19 14:18 56 L 16 150/87 H 97 07/25/19 13:23 70 14 135/74 H 95 07/25/19 11:01 36.5 C 48 L 20 137/73 H 96 Conclusion and Plan - Lab Results Laboratory Results 07/25/19 17:55: Sodium 143, Potassium 3.6, Chloride 108, Carbon Dioxide 24, Anion Gap 11.0, BUN 21 H, Creatinine 0.8, Estimated GFR (MDRD) 76 L, Glucose 121 H, Calcium 9.5, Total Bilirubin 1.0, AST 52 H, ALT 67 H, Alkaline Phosphatase 74, Total Protein 7.8, Albumin 4.4, Globulin 3.4, Albumin/Globulin Ratio 1.3, Lipase 26 07/25/19 17:55: WBC 17.6 H, RBC 3.91 L, Hgb 13.9, Hct 40.5, MCV 103.6 H, MCH 35.5 H, MCHC 34.3, RDW 13.0, Plt Count 295, MPV 9.9, Neut # (Auto) 13.6 H, Lymph # (Auto) 2.5, Bartholomew # (Auto) 1.1 H, Eos # (Auto) 0.1, Baso # (Auto) 0.1, Absolute Nucleated RBC 0.00, Nucleated RBC % 0.0 07/25/19 07:45: Sodium 142, Potassium 3.5, Chloride 106, Carbon Dioxide 23, Anion Gap 13.0, BUN 26 H, Creatinine 0.9, Estimated GFR (MDRD) 66 L, Glucose 129 H, Calcium 9.9, Total Bilirubin 0.9, AST 44 H, ALT 58, Alkaline Phosphatase 93, Total Protein 7.7, Albumin 4.2, Globulin 3.5, Albumin/Globulin Ratio 1.2, Lipase 36 07/25/19 07:45: PT 10.8, INR 0.9 07/25/19 07:45: WBC 13.8 H, RBC 4.20, Hgb 15.2, Hct 43.2, MCV 102.9 H, MCH 36.2 H, MCHC 35.2, RDW 12.8, Plt Count 325, MPV 9.9, Neut # (Auto) 6.3, Lymph # (Auto) 5.6 H, Bartholomew # (Auto) 1.1 H, Eos # (Auto) 0.5, Baso # (Auto) 0.2 H, Absolute Nucleated RBC 0.00, Nucleated RBC % 0.0, Manual Slide Review Indicated, RBC Morph Micro Appear 2+ ANISOCYTOSIS 07/25/19 07:37: Urine Color YELLOW, Urine Clarity CLEAR, Urine pH 6.0, Ur Specific Covel 1.020, Urine Protein NEGATIVE, Urine Glucose (UA) NEGATIVE, Urine Ketones NEGATIVE, Urine Occult Blood NEGATIVE, Urine Nitrite POSITIVE H, Urine Bilirubin NEGATIVE, Urine Urobilinogen 0.2 (NORMAL), Ur Leukocyte Esterase TRACE H, Urine RBC 0-5, Urine WBC 6-10 H, Ur Squamous Epith Cells FEW Squamous, Urine Bacteria Few, Ur Microscopic Review INDICATED, Urine Culture Comments INDICATED, Urine HCG, Qual NEGATIVE - Diagnostic Imaging Results Diagnostic Imaging Results: positive: Final report reviewed - Diagnosis Diagnosis: Acute cholecystitis / lithiasis - Plan Plan: Lap cherry
--- NOTE | 2019-07-25 19:08 | ANESTHESIA ---
Pre-Anesthesia VS, & Labs - Diagnosis Diagnosis Acute cholecystitis / lithiasis - Procedure Laproscopic Cholecystectomy Vital Signs: Temp Pulse Resp BP Pulse Ox 36.5 C 84 16 150/68 H 98 07/25/19 17:53 07/25/19 17:53 07/25/19 17:53 07/25/19 17:53 07/25/19 17:53 Height 5 ft 4 in Weight (kg) 79.379 kg Body Mass Index 30.0 - Is Patient ?: No (hysterectomy 1990) - Lab Results Current Lab Results: Laboratory Tests 07/25/19 17:55: Sodium 143, Potassium 3.6, Chloride 108, Carbon Dioxide 24, Anion Gap 11.0, BUN 21 H, Creatinine 0.8, Estimated GFR (MDRD) 76 L, Glucose 121 H, Calcium 9.5, Total Bilirubin 1.0, AST 52 H, ALT 67 H, Alkaline Phosphatase 74, Total Protein 7.8, Albumin 4.4, Globulin 3.4, Albumin/Globulin Ratio 1.3, Lipase 26 07/25/19 17:55: WBC 17.6 H, RBC 3.91 L, Hgb 13.9, Hct 40.5, MCV 103.6 H, MCH 35.5 H, MCHC 34.3, RDW 13.0, Plt Count 295, MPV 9.9, Neut # (Auto) 13.6 H, Lymph # (Auto) 2.5, Shelby # (Auto) 1.1 H, Eos # (Auto) 0.1, Baso # (Auto) 0.1, Absolute Nucleated RBC 0.00, Nucleated RBC % 0.0 07/25/19 07:45: Sodium 142, Potassium 3.5, Chloride 106, Carbon Dioxide 23, Anion Gap 13.0, BUN 26 H, Creatinine 0.9, Estimated GFR (MDRD) 66 L, Glucose 129 H, Calcium 9.9, Total Bilirubin 0.9, AST 44 H, ALT 58, Alkaline Phosphatase 93, Total Protein 7.7, Albumin 4.2, Globulin 3.5, Albumin/Globulin Ratio 1.2, Lipase 36 07/25/19 07:45: PT 10.8, INR 0.9 07/25/19 07:45: WBC 13.8 H, RBC 4.20, Hgb 15.2, Hct 43.2, MCV 102.9 H, MCH 36.2 H, MCHC 35.2, RDW 12.8, Plt Count 325, MPV 9.9, Neut # (Auto) 6.3, Lymph # (Auto) 5.6 H, Shelby # (Auto) 1.1 H, Eos # (Auto) 0.5, Baso # (Auto) 0.2 H, Absolute Nucleated RBC 0.00, Nucleated RBC % 0.0, Manual Slide Review Indicated, RBC Morph Micro Appear 2+ ANISOCYTOSIS Fish Bones: 07/25/19 17:55 07/25/19 17:55 Home Medications and Allergies Home Medications: Ambulatory Orders Hydrochlorothiazide 12.5 mg PO DAILY 07/25/19 Omeprazole 20 mg PO 07/25/19 Sertraline [Zoloft] 25 mg PO DAILY 07/25/19 Active Medications Ciprofloxacin (Cipro 400 Mg/200 Ml) 200 mls @ 200 mls/hr IV ONCE ONE Stop: 07/25/19 19:12 Last Admin: 07/25/19 18:47 Dose: 200 mls/hr Metronidazole (Flagyl 500 Mg/100 Ml) 500 mg in 100 mls @ 100 mls/hr IV ONCE ONE Stop: 07/25/19 19:12 Last Admin: 07/25/19 18:33 Dose: 100 mls/hr Losartan Potassium 100 mg PO DAILY 03/17/16 Hydrochlorothiazide 12.5 mg PO DAILY 07/25/19 Omeprazole 20 mg PO 07/25/19 Sertraline [Zoloft] 25 mg PO DAILY 07/25/19 Allergies/Adverse Reactions: Allergies Allergy/AdvReac Type Severity Reaction Status Date / Time cephalexin monohydrate * Allergy Hives Verified 07/25/19 07:36 [From Keflex] Penicillins Allergy Hives Verified 07/25/19 07:36 Anes History & Medical History - Anesthetic History Anesthesia Complications: reports: No previous complications Family history of Anesthesia Complications: Denies Family history of Malignant Hyperthermia: Denies - Medical History Cardiovascular: reports: Hypertension, High cholesterol, Arrhythmia, Other (reports 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 smokes pot "everyday, little") Psychosocial: reports: Depression, Anxiety, Alcohol ("alot" " atleast 5 to 6 drinks" "rum") - Surgical History Gynecologic: Hysterectomy, LEEP (Cervical surgery) Exam General: Alert, Oriented x3, Cooperative, No acute distress Dental: Dentures full Upper, Partials Lower Mouth Openin Fingerbreadth Neck Mobility: Normal Mallampati classification: II Thyromental Distance: 4-6 cm Respiratory: Lungs clear, Normal breath sounds, No respiratory distress, No accessory muscle use, Decreased breath sounds Cardiovascular: Regular rate, Normal S1, Normal S2, No murmurs Abdomen: Normal bowel sounds, Soft, No tenderness, No hepatospenomegaly, No masses Extremities: No clubbing, No cyanosis, Normal pulses, No tenderness/swelling, Other (reports swelling in her ankles " all the time") Neurological: Normal gait, Normal speech, Strength at 5/5 X4 ext, Normal tone, Sensation intact, Cranial nerves 3-12 NL, Reflexes 2+ Mental/Cognitive Status: Alert/Oriented X3, Normal for patient Cognitive Status: Within normal limits Plan Anesthesia Type: General Consent for Procedure(s) Verified and Reviewed: Yes Code Status: Attempt Resuscitation ASA classification: 3-Severe systemic disease (drinks " alot, everyday" smokes 1ppd x35 years, does "pot everyday") Is this case an emergency?: Yes
[2019-07-25] MEDS ORDERED: LIDOCAINE 1%-EPI 1:100000 20 ML MDV ONE (19:32)
[2019-07-25] MEDS ORDERED: LIDOCAINE 1%-EPI 1:100000 20 ML MDV SUBQ ONE (19:36)
[2019-07-25] MEDS ORDERED: LACTATED RINGERS 1,000 ML IV ONE ×3 (19:36)
[2019-07-25] MEDS ORDERED: ENOXAPARIN 30 MG/0.3 ML SYRINGE SUBQ ONE (19:46)
[2019-07-25] MEDS ORDERED: DEXAMETHASONE 4 MG/ML VIAL IVP ONE (19:48)
[2019-07-25] MEDS ORDERED: NEOSTIGMINE 1 MG/1 ML 10 ML MDV IVP ONE (19:48)
[2019-07-25] MEDS ORDERED: fentaNYL 100 MCG/2 ML VIAL IVP ONE (19:48)
[2019-07-25] MEDS ORDERED: PHENYLEPHRINE 10 MG/ML VIAL IV ONE (19:48)
[2019-07-25] MEDS ORDERED: MIDAZOLAM 2 MG/2 ML VIAL IVP ONE (19:48)
[2019-07-25] MEDS ORDERED: PROPOFOL 200 MG/20 ML VIAL IVP ONE (19:48)
[2019-07-25] MEDS ORDERED: ePHEDrine 50 MG/ML VIAL IVP ONE (19:48)
[2019-07-25] MEDS ORDERED: ONDANSETRON 4 MG/2 ML VIAL IVP ONE (19:48)
[2019-07-25] MEDS ORDERED: GLYCOPYRROLATE 1 MG/5 ML VIAL IVP ONE (19:48)
[2019-07-25] MEDS ORDERED: KETOROLAC 30 MG/ML VIAL IVP ONE (19:48)
[2019-07-25] MEDS ORDERED: ACETAMINOPHEN 1,000 MG/100 ML 100 ML IV ONE (19:48)
[2019-07-25] MEDS ORDERED: ROCURONIUM 50 MG/5 ML VIAL IVP ONE (19:48)
[2019-07-25] MEDS ORDERED: ONDANSETRON 4 MG/2 ML VIAL IVP PRN (21:24)
[2019-07-25] MEDS ORDERED: ACETAMINOPHEN 325 MG TABLET PO PRN (21:24)
[2019-07-25] MEDS ORDERED: IBUPROFEN 600 MG TABLET PO PRN (21:24)
--- NOTE | 2019-07-25 21:27 | IMMEDIATE POSTOPERATIVE NOTE ---
Immediate Postoperative Note - Procedure Note Procedure Date: 07/25/19 Pre-Op Diagnosis: Acute cholecystitis/lithiasis Procedure: Lap cherry Post-Op Diagnosis: Same Primary Surgeon: Diego Anesthesia Type: General ET tube, Local Findings: Severe acute cholecystitis w/multiple gallstones and pericholecystic adhesions/edema Complications: No complications Estimated Blood Loss (in cc): 5 Specimens and Cultures: GB and contents Plan of Care: See order set
[2019-07-25] MEDS ORDERED: metroNIDAZOLE 500 MG/100 ML 500 MG/100 ML BAG IV SCH (22:00)
[2019-07-25] MEDS ORDERED: CIPROFLOXACIN 200 MG/100 ML 100 ML IV SCH (22:00)
[2019-07-26] MEDS: HYDROcod/ACETAM 5/325 MG TABLET PO PRN ×2 (00:55→05:24)
[2019-07-26] MEDS ORDERED: metroNIDAZOLE 500 MG/100 ML 500 MG/100 ML BAG IV SCH (04:00)
[2019-07-26 07:32] VITALS: BP 118/78
--- NOTE | 2019-07-26 07:41 | OPERATIVE REPORT ---
DATE OF SERVICE: 07/25/2019 Physician: Jono Cortez DO PREOPERATIVE DIAGNOSES: Acute cholecystitis/cholelithiasis. POSTOPERATIVE DIAGNOSES: Acute cholecystitis/cholelithiasis. PROCEDURE: Laparoscopic cholecystectomy. SURGEON: Jono Cortez DO. ANESTHESIA PROVIDER: [TIME: 00:19], BLIND INSTALLER ANESTHESIA: General endotracheal tube with local assist. ESTIMATED BLOOD LOSS: 5 mL FINDINGS: Patient's gallbladder was severely inflamed with multiple pericholecystic inflammatory adh esions, edematous wall, and multiple gallstones. It was in the intrahepatic configuration as well. COMPLICATIONS: None. CONDITION: Improved upon transport to recovery. HISTORY: Patient is a 49-year-old white female with signs and symptoms consistent with acute cholecy stitis. She began to have pain several days ago but subsided, however, until this morning when the p ain awakened her from sleep, which was sharp and radiated to the upper right side of her abdomen, int o her neck and her back. Her emergency department evaluation revealed multiple gallstones, but liver enzymes were not elevated, particularly the bilirubin, which was 1.0. Her common bile duct was slig htly enlarged at 8 mm. There were no indications for choledocholithiasis. PROCEDURE IN DETAIL: The patient was taken to the operating room and under the above-mentioned anest hetic, prepped and draped in the usual sterile manner. A timeout was performed. Subsequently, the a bdominal cavity was entered through the umbilicus using the Visiport device. Once in the abdominal c avity, the pneumoperitoneum was established and the working ports were placed under direct vision. S ubsequently, the fundus of the gallbladder was identified, but multiple pericholecystic and inflammat ory adhesions had to be dissected away and this was done through the use of electrocautery. Eventual ly, the fundus of the gallbladder was placed on cephalad traction and the infundibulum identified and placed on gentle anterolateral traction. Dissection was carried down to the cystic duct, where it w as mobilized at the neck of the gallbladder down to the junction with the common bile duct. At no ti me was the common bile duct manipulated, injured or otherwise harmed. The cystic artery was likewise identified and mobilized. The cystic duct was stapled at the neck of the gallbladder and 2 addition al tierra below this were placed. The cystic duct was then divided between the top 2 tierra. Like marie, the cystic artery was triply stapled in the same manner and divided between the top 2 tierra. The gallbladder was then excised out of the liver bed using electrocautery. However, the posterior wall of the gallbladder was densely adherent to the liver bed and was remaining once the majority of the gallbladder was removed. Multiple stones had to be retrieved by the stone grasper. Reevaluation of the posterior wall of the gallbladder that was adherent to the liver bed revealed that it was pot entially mobile, and I was able to grasp it and carefully dissected off of the liver bed and remove i t as well and it went with the gallbladder as part and parcel. At this time, copious irrigation with sterile saline was performed and as much of this irrigant was e vacuated as possible. A small bleeder in the liver bed was electrocoagulated and hemostasis was achi eved. There was no bile leak. Again, any stone remnants that were visible were then removed, again with the stone grasper device. Another round of irrigation was performed and no bleeding or bile sonido k was noted. As much of this irrigant as possible was then evacuated and a piece of Surgicel placed in the liver bed for hemostatic and bacteriostatic use. The patient was then placed in the flattened out position and, again, any visible irrigation fluid was evacuated. At this time, after a correct sponge and needle count was reported, the working ports were withdrawn under direct vision and there was no bleeding noted. The pneumoperitoneum was released. The umbilic al port removed and all of the skin margins then joined with undyed subcuticular 4-0 Monocryl suture, Dermabond over them, and the patient was transferred to the recovery in improved condition. TD: 07/25/2019 21:38
[2019-07-26] MEDS ORDERED: CIPROFLOXACIN 200 MG/100 ML 100 ML IV SCH (08:00)
== END 2019-07-26 07:50 | disposition home or self-care (01) ==
LOC: ED 07:23 → SDS 18:47 → MS2 21:23 → SDS 07-26 07:50
PROVIDERS: ATTEND Surgery
PROC: 0FT44ZZ Resection of Gallbladder, Percutaneous Endoscopic Approach (ICD-10-PCS; principal; 2019-07-25 19:45)
DX: K80.00 Calculus of gallbladder with acute cholecystitis without obstruction (principal); K82.8 Other specified diseases of gallbladder; I49.9 Cardiac arrhythmia, unspecified; K57.30 Diverticulosis of large intestine without perforation or abscess without bleeding; K76.0 Fatty (change of) liver, not elsewhere classified; F17.210 Nicotine dependence, cigarettes, uncomplicated; K21.9 Gastro-esophageal reflux disease without esophagitis; F32.9 Major depressive disorder, single episode, unspecified; F41.9 Anxiety disorder, unspecified; E78.00 Pure hypercholesterolemia, unspecified; Z72.89 Other problems related to lifestyle; Z86.79 Personal history of other diseases of the circulatory system
CPT/HCPCS: 36415; 47562; 74177; 74181; 76705; 80053; 81001; 81025; 83690; 85025; 85610; 87086; 87181; 96361; 96374; 96375; 96376; 99285; A9270; J0131; J1170; J1650; J7120; Q9967; 81003

== ENCOUNTER 2019-07-30 00:26 | Emergency (ER) | payer MEDICAID ==
[2019-07-30] MEDS ORDERED: ASPIRIN CHEW 81 MG TABLET PO STA (00:54)
[2019-07-30] MEDS ORDERED: KETOROLAC 30 MG/ML VIAL IVP STA (01:03)
--- NOTE | 2019-07-30 01:05 | ED Physician Documentation ---
PD HPI CHEST PAIN - Stated complaint Stated Complaint: CHEST PX, SOA - Chief complaint Chief Complaint: Cardiac - History obtained from History obtained from: Patient - History of Present Illness Timing - onset: Enter time (0000), Today Timing - onset during: Rest Timing - duration: Minutes Timing - details: Abrupt onset, Still present Quality: Pressure, Tightness, Sharp Location: Right chest, Right shoulder/arm Radiation: Abdominal Improved by: Rest Worsened by: Inspiration, Movement, Palpation, Position Associated symptoms: Shortness of air. No: Diaphoresis, Nausea, Vomiting, Feeling faint / dizzy, General Weakness, Palpitations Similar symptoms before: Has not had sx before Recently seen: Surgery - Additional information Additional information: 49-year-old female has had her gallbladder out 4 days ago and she was doing fine postoperatively. She states that she did have some enchiladas and alcohol tonight in celebration for New Year' and was laying down when she suddenly had the onset of acute pain in the right upper quadrant and the right chest with some shortness of breath associated with it and pain with each breath. She denies any nausea or vomiting states that she was doing well postoperatively and healing up does not seem to have any abdominal pain associated with this but tonight severe pain in the right chest with inspiration. Review of Systems Constitutional: denies: Fever, Chills, Myalgias Eyes: denies: Decreased vision Ears: denies: Ear pain Nose: denies: Rhinorrhea / runny nose, Congestion Throat: denies: Sore throat Cardiac: reports: Chest pain / pressure. denies: Palpitations, Pedal edema, Calf pain Respiratory: reports: Dyspnea. denies: Cough, Wheezing GI: reports: Abdominal Pain. 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: Hysterectomy, LEEP (Cervical surgery) - Present Medications Home Medications: Ambulatory Orders Medication Instructions Recorded Confirmed Losartan Potassium 100 mg PO DAILY 03/17/16 03/17/16 Hydrochlorothiazide 12.5 mg PO DAILY 07/25/19 Omeprazole 20 mg PO 07/25/19 Sertraline [Zoloft] 25 mg PO DAILY 07/25/19 - Allergies Allergies/Adverse Reactions: Allergies Allergy/AdvReac Type Severity Reaction Status Date / Time cephalexin monohydrate * Allergy Hives Verified 07/30/19 00:48 [From Keflex] Penicillins Allergy Hives Verified 07/30/19 00:48 - Social History Does the pt smoke?: Yes Smoking Status: Current every day smoker Does the pt drink ETOH?: Yes Does the pt have substance abuse?: No - Immunizations Immunizations are current?: Yes - POLST Patient has POLST: No PD ED PE NORMAL - Vitals Vital signs reviewed: Yes (hypertensive marked diastolic ) - General General: Alert and oriented X 3, Well developed/nourished, Other (acutely in pain crying with each breath) - HEENT HEENT: Atraumatic, PERRL, EOMI - Neck Neck: Supple, no meningeal sign, No bony TTP - Cardiac Cardiac: RRR, No murmur - Respiratory Respiratory: Other (tachypneic with painful breathing and clear lungs. ) - Abdomen Abdomen: Soft, Other (The surgical wounds appear to be healing well without signs of inflamation and with tenderness in general to the upper abdomen. ) - Back Back: No CVA TTP, No spinal TTP - Derm Derm: Normal color, Warm and dry, No rash - Extremities Extremities: No deformity, No edema - Neuro Neuro: Alert and oriented X 3, commercial specialist 2-12 intact, No motor deficit, No sensory deficit, Normal speech Eye Opening: Spontaneous Motor: Obeys Commands Verbal: Oriented GCS Score: 15 - Psych Psych: Other (mood is defeated and the affect is angry) Results - Vitals Vitals: Vital Signs - 24 hr 07/30/19 07/30/19 07/30/19 00:45 03:00 06:40 Temperature 36.8 C Heart Rate 90 75 97 Respiratory 22 12 19 Rate Blood Pressure 155/119 H 172/103 H 154/98 H O2 Saturation 95 96 98 Oxygen O2 Source Room air - EKG (time done) 0041 Rate: Rate (enter#) (73) Rhythm: NSR Ischemia: Normal ST segments Compare to prior EKG: Old EKG unavailable Computer interpretation: Agree with computer - Labs Labs: Laboratory Tests 07/30/19 07/30/19 07/30/19 01:10 01:10 01:10 WBC 13.4 H RBC 3.72 L Hgb 13.2 Hct 38.4 MCV 103.2 H MCH 35.5 H MCHC 34.4 RDW 13.2 Plt Count 315 MPV 9.6 Neut # (Auto) 9.6 H Lymph # (Auto) 2.2 Dillon # (Auto) 1.0 Eos # (Auto) 0.3 Baso # (Auto) 0.1 Absolute Nucleated RBC 0.00 Nucleated RBC % 0.0 D-Dimer Sodium 144 Potassium 2.8 L Chloride 105 Carbon Dioxide 23 Anion Gap 16.0 H BUN 15 Creatinine 0.9 Estimated GFR (MDRD) 66 L Glucose 139 H Calcium 10.0 Total Bilirubin 0.7 AST 45 H ALT 65 H Alkaline Phosphatase 79 Troponin I High Sens 6.4 Total Protein 7.8 Albumin 4.0 Globulin 3.8 Albumin/Globulin Ratio 1.1 Lipase 30 07/30/19 01:10 WBC RBC Hgb Hct MCV MCH MCHC RDW Plt Count MPV Neut # (Auto) Lymph # (Auto) Dillon # (Auto) Eos # (Auto) Baso # (Auto) Absolute Nucleated RBC Nucleated RBC % D-Dimer 599.6 H Sodium Potassium Chloride Carbon Dioxide Anion Gap BUN Creatinine Estimated GFR (MDRD) Glucose Calcium Total Bilirubin AST ALT Alkaline Phosphatase Troponin I High Sens Total Protein Albumin Globulin Albumin/Globulin Ratio Lipase - Rads (name of study) chest Radiology: Prelim report reviewed (Impression: Clear lungs.), EMP read indepedently, See rad report CTA chest Radiology: Prelim report reviewed (Impression: 1. No pulmonary emboli. Mild upper abdominal free fluid with evidence of recent cholecystectomy caused him, raising suspicion for bile leak. Consider HIDA scan if indicated. Right upper quadrant peritoneal injection is probably related to recent surgery. Cannot exclude developing postoperative peritonitis as well no abscess seen.), EMP read indepedently, See rad report u/s RUQ Radiology: Prelim report reviewed (Impression: 1. Status post cholecystectomy. There is a mild amount of perihepatic free fluid which may be due to recent surgery. No biliary dilation seen. No common duct stone identified. Distal common duct is obscured by bowel gas. Echogenic liver suggesting fatty infiltration.), EMP read indepedently, See rad report PD MEDICAL DECISION MAKING - ED course Complexity details: reviewed old records, reviewed results, re-evaluated patient, considered differential, d/w patient ED course: 49-year-old female status post cholecystectomy 4 days had a markedly inflamed gallbladder on initial presentation and marked pain behavior. She required multiple doses of pain medication. She appeared to be recovering from her surgery and this evening had sudden onset of severe pain. She presented to the emergency department with concerns of chest pain and difficulty breathing and eventually a CT angiogram was obtained demonstrating normal lungs and evidence of fluid in the surgical site and all the way out to the spleen. The concern was for a bile leak and the recommendation was for a HIDA scan. The surgeon Dr. Boo was consulted and the case recommended formal ultrasound and the HIDA scan and we were able to obtain the ultrasound and there is no evidence of obstruction. We were not able to obtain the HIDA scan as it will not be available here today. I made contact with Dr. Alexis at [facility] in [place] in the emergency department and he kindly agreed to host the patient for a HIDA scan. We do not have the capability of treating the patient's bile leak here if it is present and treatment wound need to be entertained there. I have let the patient know that if the HIDA scan is negative she will be discharged from the emergency department there. Here in the emergency department the patient required multiple doses of Dilaudid for pain control and she had no improvement with a GI cocktail. She did have low potassium and potassium was started at 10 mEq/h intravenously. Departure - Departure Disposition: 02 Transfer Acute Care Hosp Clinical Impression: RUQ abdominal pain Condition: Stable
[2019-07-30 01:15] LABS: BASOPHILS # (AUTO) 0.1 10^3/uL (0.0-0.1); BASOPHILS % (AUTO) 0.8 %; EOSINOPHILS # (AUTO) 0.3 10^3/uL (0.0-0.7); EOSINOPHILS % (AUTO) 2.2 %; HGB - HEMOGLOBIN 13.2 g/dL (12.0-16.0); LYMPHOCYTES # (AUTO) 2.2 10^3/uL (1.5-3.5); LYMPHOCYTES % (AUTO) 16.3 %; MEAN CORPUSCULAR HEMOGLOBIN 35.5 pg (27.0-31.0); MEAN CORPUSCULAR HGB CONC 34.4 g/dL (32.0-36.0); MEAN CORPUSCULAR VOLUME 103.2 fL (81.0-99.0); MEAN PLATELET VOLUME 9.6 fL (7.9-10.8); MONOCYTES % (AUTO) 7.2 %; NEUTROPHILS # (AUTO) 9.6 10^3/uL (1.5-6.6); NEUTROPHILS % (AUTO) 71.1 %; PLT - PLATELET COUNT 315 10^3/uL (130-450); RED BLOOD COUNT 3.72 10^6/uL (4.20-5.40); RED CELL DISTRIBUTION WIDTH 13.2 % (12.0-15.0); WHITE BLOOD COUNT 13.4 x10^3/uL (4.8-10.8)
[2019-07-30 01:30] LABS: ALBUMIN/GLOBULIN RATIO 1.1 (1.0-2.2); BILIRUBIN,TOTAL 0.7 mg/dL (0.2-1.0); CREATININE 0.9 mg/dL (0.4-1.0); TOTAL PROTEIN 7.8 g/dL (6.7-8.2)
--- NOTE | 2019-07-30 01:48 | XRAY Report ---
Reason: chest pain Procedure Date: 07/30/2019 Accession Number: [id number] / [id number] Procedure: XR - Chest 1 View X-Ray CPT Code: 51121 Final Report FULL RESULT: EXAM: CHEST RADIOGRAPHY EXAM DATE: 07/30/2019 01:25 AM. CLINICAL HISTORY: Chest pain. COMPARISON: None. TECHNIQUE: 1 view. FINDINGS: Lungs/Pleura: No focal opacities evident. No pleural effusion. No pneumothorax. Mediastinum: Within exam limitations, the cardiomediastinal contour is normal. Other: None. IMPRESSION: Clear lungs. RADIA
[2019-07-30] MEDS ORDERED: ONDANSETRON 4 MG/2 ML VIAL IVP STA ×2 (02:23→05:59)
[2019-07-30] MEDS ORDERED: HYDROmorphone 1 MG/ML CARPUJECT IVP STA ×4 (02:23→08:40)
[2019-07-30] MEDS ORDERED: IOVERSOL 320 100 ML VIAL IVP ONE ×2 (02:36→02:59)
[2019-07-30] MEDS: POTASSIUM CHLOR 10 MEQ/100 ML 10 MEQ/100 ML BAG IV SCH ×3 (03:10→06:41)
[2019-07-30] MEDS ORDERED: MAG HYDROX/AL HYDROX/SIMETH 30 ML UDC PO STA (03:31)
[2019-07-30] MEDS ORDERED: LIDOCAINE VISCOUS 2% 15 ML UDC MM STA (03:31)
--- NOTE | 2019-07-30 03:41 | CT Report ---
Reason: chest pain soa d-dimer pos Procedure Date: 07/30/2019 Accession Number: [id number] / [id number] Procedure: CT - ANGIO CHEST W/WO CPT Code: Final Report FULL RESULT: EXAM: CT ANGIOGRAM CHEST EXAM DATE: 07/30/2019 03:01 AM CLINICAL HISTORY: Chest pain, shortness of breath, D-dimer positive. COMPARISON: MRCP W/O 07/25/2019 4:54 PM. TECHNIQUE: Routine helical imaging was performed through the chest in the pulmonary arterial phase. IV Contrast: 80 mL Optiray 320. Reconstructions: Coronal 3D MIP reconstructions. Sagittal and coronal. In accordance with CT protocol optimization, one or more of the following dose reduction techniques were utilized for this exam: automated exposure control, adjustment of mA and/or KV based on patient size, or use of iterative reconstructive technique. FINDINGS: Pulmonary Arteries: Technically adequate for evaluation through the segmental arteries. No evidence for acute or chronic pulmonary emboli. Lungs/Pleura: No pneumonia, suspicious nodules, or edema. Calcified granulomas bilaterally. No effusions or pneumothorax. Mediastinum: No acute aortic syndrome. No cardiac enlargement. No adenopathy. Upper Abdomen: Recent cholecystectomy. Mild fluid in the cholecystectomy bed as well as fluid adjacent to the liver and spleen, raising suspicion for small bile leak. Mild injection of the peritoneum near the site of surgery, likely postoperative related. No postoperative abscess seen. Minimal residual postoperative gas. Other: None. IMPRESSION: 1. No pulmonary emboli. 2. Mild upper abdominal free fluid with evidence of recent cholecystectomy, raising suspicion for small bile leak. Consider HIDA scan if indicated. 3. Right upper quadrant peritoneal injection is probably related to recent surgery. Cannot exclude developing postoperative peritonitis as well. No abscess seen. RADIA
--- NOTE | 2019-07-30 05:50 | Ultrasound Report ---
Reason: RUQ pain post op ? evidence of retained stone. Procedure Date: 07/30/2019 Accession Number: [id number] / [id number] Procedure: US - Abdomen Limited CPT Code: Final Report FULL RESULT: EXAM: ABDOMEN ULTRASOUND LIMITED, RUQ EXAM DATE: 07/30/2019 05:16 AM. CLINICAL HISTORY: RUQ pain post op ? evidence of retained stone. COMPARISON: ABDOMEN LIMITED 07/25/2019 8:46 AM. TECHNIQUE: Real-time scanning was performed with static images obtained. FINDINGS: Liver: Echogenic. 18.3 cm. Main portal vein flow: Hepatopetal. Gallbladder: Surgically absent. Biliary System: CBD measures 5.1 mm. Distal common duct not well seen due to bowel gas. Other: Right kidney measures 10.0 cm and appears normal. There is free fluid adjacent to the liver. Inferior vena cava is patent where seen. Pancreas is not well seen due to bowel gas. IMPRESSION: 1. Status post cholecystectomy. There is a mild amount of perihepatic free fluid which may be due to recent surgery. 2. No biliary dilatation seen. No common duct stone identified. Distal common duct is obscured by bowel gas. 3. Echogenic liver suggesting fatty infiltration. RADIA
[2019-07-30] MEDS ORDERED: LORazepam 2 MG/ML VIAL IVP STA (05:59)
[2019-07-30 08:47] VITALS: BP 115/62
== END 2019-07-30 08:46 | disposition short-term general hospital (02) ==
LOC: ED 00:26
DX: R10.11 Right upper quadrant pain (principal); E87.6 Hypokalemia; R18.8 Other ascites; Z98.890 Other specified postprocedural states; Z90.49 Acquired absence of other specified parts of digestive tract; I10 Essential (primary) hypertension; F17.200 Nicotine dependence, unspecified, uncomplicated
CPT/HCPCS: 36415; 71045; 71275; 76705; 80053; 83690; 84484; 85025; 85379; 93005; 96365; 96366; 96375; 96376; 99285; A9270; J1170; J2060; Q9967

== ENCOUNTER 2019-07-30 08:46 | Outpatient (CLI) | payer MEDICAID | END 2019-07-30 08:47 | disposition short-term general hospital (02) | LOC: EMS 08:46 | PROVIDERS: ATTEND Surgery | DX: R10.11 Right upper quadrant pain (principal); R93.5 Abnormal findings on diagnostic imaging of other abdominal regions, including retroperitoneum; R07.9 Chest pain, unspecified; M25.511 Pain in right shoulder; Z90.49 Acquired absence of other specified parts of digestive tract | CPT/HCPCS: A0425; A0426 ==

== ENCOUNTER 2019-09-02 08:00 | Outpatient (CLI) | payer MEDICAID ==
[2019-09-02 18:49] LABS: BASOPHILS # (AUTO) 0.1 10^3/uL (0.0-0.1); EOSINOPHILS # (AUTO) 0.6 10^3/uL (0.0-0.7); HGB - HEMOGLOBIN 13.2 g/dL (12.0-16.0); LYMPHOCYTES # (AUTO) 3.7 10^3/uL (1.5-3.5); MEAN CORPUSCULAR HEMOGLOBIN 34.6 pg (27.0-31.0); MEAN CORPUSCULAR HGB CONC 32.8 g/dL (32.0-36.0); MEAN CORPUSCULAR VOLUME 105.8 fL (81.0-99.0); MONOCYTES # (AUTO) 0.7 10^3/uL (0.0-1.0); MONOCYTES % (AUTO) 7.1 %; NEUTROPHILS # (AUTO) 4.6 10^3/uL (1.5-6.6); NEUTROPHILS % (AUTO) 47.3 %; PLT - PLATELET COUNT 265 10^3/uL (130-450); RED BLOOD COUNT 3.81 10^6/uL (4.20-5.40); RED CELL DISTRIBUTION WIDTH 14.5 % (12.0-15.0); WHITE BLOOD COUNT 9.8 x10^3/uL (4.8-10.8)
[2019-09-02 19:11] LABS: ALBUMIN/GLOBULIN RATIO 1.2 (1.0-2.2); BILIRUBIN,TOTAL 1.2 mg/dL (0.2-1.0); CALCIUM 9.4 mg/dL (8.5-10.3); CREATININE 0.6 mg/dL (0.4-1.0); TOTAL PROTEIN 7.3 g/dL (6.7-8.2)
== END 2019-09-02 08:01 | disposition home or self-care (01) ==
LOC: LAB.N 08:00
PROVIDERS: ATTEND Nurse Practitioner Gerontology
DX: R74.8 Abnormal levels of other serum enzymes (principal); A41.9 Sepsis, unspecified organism; D53.9 Nutritional anemia, unspecified; K65.9 Peritonitis, unspecified
CPT/HCPCS: 36415; 80053; 85025

== ENCOUNTER 2020-03-18 10:04 | Outpatient (CLI) | payer MEDICAID ==
--- NOTE | 2020-03-18 10:33 | XRAY Report ---
PROCEDURE: Shoulder 2 View RT INDICATIONS: RIGHT SHOULDER PAIN TECHNIQUE: 2 views of the shoulder were acquired. COMPARISON: None. FINDINGS: Bones: No significant degenerative changes. No fractures or dislocations. No suspicious bony lesions . Visualized ribs appear intact. Soft tissues: No suspicious soft tissue calcifications. IMPRESSION: No acute finding or significant degenerative changes. Reviewed by: Donald Ibanez MD on 03/18/2020 10:31 AM PDT Approved by: Donald Ibanez MD on 03/18/2020 10:31 AM PDT Station ID: [id number]
== END 2020-03-18 10:05 | disposition home or self-care (01) ==
LOC: DI.WCP 10:04
PROVIDERS: ATTEND Family Medicine
DX: M25.511 Pain in right shoulder (principal)

== ENCOUNTER 2020-08-17 08:43 | Outpatient (CLI) | payer MEDICAID ==
--- NOTE | 2020-08-18 10:10 | Mammography Report ---
BILATERAL DIGITAL SCREENING MAMMOGRAM 3D/2D: 08/17/2020 CLINICAL: Routine screening. Comparison is made to exam dated: 01/11/2016 mammogram - [facility]. There are sca ttered fibroglandular elements in both breasts. No significant masses, calcifications, or other findings are seen in either breast. There has been no significant interval change. IMPRESSION: NEGATIVE There is no mammographic evidence of malignancy. A 1 year screening mammogram is recommended. This exam was interpreted at Station ID: [id number]. NOTE: For mammograms, a report in lay terms will be sent to the patient. Approximately 15% of breast malignancies will not be visualized mammographically. In the management of a palpable breast mass, a negative mammogram must not discourage biopsy of a clinically suspicious lesion. Electronically Signed By: Jhonathan fried/alexx:08/17/2020 10:10:30 ACR BI-RADS Category 1: Negative 3341F PARENCHYMAL PATTERN: (A) - The breast(s) demonstrate(s) scattered fibroglandular densities. BI-RADS CATEGORY: (1) - 1 RECOMMENDATION: (ANNUAL) - Recommend routine annual screening mammography. [id number] 1 year screening LATERALITY: (B)
== END 2020-08-17 08:44 | disposition home or self-care (01) ==
LOC: DI.N 08:43
PROVIDERS: ATTEND Internal Medicine
DX: Z12.31 Encounter for screening mammogram for malignant neoplasm of breast (principal)

== ENCOUNTER 2020-09-07 08:00 | Outpatient (CLI) | payer MEDICAID ==
[2020-09-07 12:31] LABS: BASOPHILS % (AUTO) 1.2 %; EOSINOPHILS % (AUTO) 3.6 %; HGB - HEMOGLOBIN 14.5 g/dL (12.0-16.0); LYMPHOCYTES % (AUTO) 39.6 %; MEAN CORPUSCULAR HEMOGLOBIN 36.4 pg (27.0-31.0); MEAN CORPUSCULAR HGB CONC 34.3 g/dL (32.0-36.0); MEAN CORPUSCULAR VOLUME 106.3 fL (81.0-99.0); MEAN PLATELET VOLUME 10.7 fL (7.9-10.8); MONOCYTES % (AUTO) 8.2 %; NEUTROPHILS % (AUTO) 46.5 %; PLT - PLATELET COUNT 316 10^3/uL (130-450); RED BLOOD COUNT 3.98 10^6/uL (4.20-5.40); RED CELL DISTRIBUTION WIDTH 12.7 % (12.0-15.0); WHITE BLOOD COUNT 13.2 x10^3/uL (4.8-10.8)
[2020-09-07 12:49] LABS: ABNORMAL LYMPHS % (MANUAL) 0 %; BAND NEUTROPHILS % (MANUAL) 0 %
[2020-09-07 12:53] LABS: BASOPHILS # (MANUAL) 0.3 10^3/uL (0-0.1); BASOPHILS % (MANUAL) 2 %; EOSINOPHILS # (MANUAL) 0.7 10^3/uL (0-0.7); LYMPHOCYTES # (MANUAL) 5.4 10^3/uL (1.5-3.5); LYMPHOCYTES % (MANUAL) 41 %; MONOCYTES # (MANUAL) 1.7 10^3/uL (0.0-1.0)
[2020-09-07 12:54] LABS: DIFFERENTIAL COMMENT MANUAL DIFFERENTIAL; PLATELET ESTIMATE, MANUAL NORMAL (130-450,000) (NORMAL); PLATELET MORPHOLOGY NORMAL APPEARANCE (NORMAL); RBC MORPHOLOGY (MULTIPLE) 1+ MACROCYTOSIS (NORMAL)
[2020-09-07 13:15] LABS: ALBUMIN 4.2 g/dL (3.2-5.5); ALBUMIN/GLOBULIN RATIO 1.4 (1.0-2.2); ALKALINE PHOSPHATASE 81 IU/L (42-121); ALT ALANINE AMINOTRANSFERASE 143 IU/L (10-60); AST ASPARTATE AMINOTRANSFERASE 94 IU/L (10-42); BILIRUBIN,TOTAL 0.7 mg/dL (0.2-1.0); BUN - BLOOD UREA NITROGEN 25 mg/dL (6-20); CALCIUM 9.9 mg/dL (8.5-10.3); CARBON DIOXIDE - CO2 22 mmol/L (21-32); CHLORIDE 106 mmol/L (101-111); CHOL/HDL RATIO 4.4 (<4.4); CHOLESTEROL 283 mg/dL; CREATININE 1.1 mg/dL (0.4-1.0); GLUCOSE 106 mg/dL (70-100); HDL CHOLESTEROL 65 mg/dL; LDL CHOLESTEROL,CALCULATED 187 mg/dL; LDL/HDL RATIO 2.9 (<4.4); TOTAL PROTEIN 7.2 g/dL (6.7-8.2); VLDL CHOLESTEROL 31 mg/dL
[2020-09-07 13:50] LABS: LUTEINIZING HORMONE 48.14 mIU/mL
== END 2020-09-07 23:59 | disposition home or self-care (01) ==
LOC: LAB.WCP 08:00
PROVIDERS: ATTEND Internal Medicine
DX: I10 Essential (primary) hypertension (principal); Z78.0 Asymptomatic menopausal state
CPT/HCPCS: 36415; 80050; 80061; 83002; 83721

== ENCOUNTER 2020-09-09 11:59 | Outpatient (CLI) | payer MEDICAID ==
[2020-09-09 18:39] LABS: % IRON SATURATION 19 % (20-50); IRON 88 ug/dL (28-170); TOTAL IRON BINDING CAPACITY 475 ug/dL (250-450); TRANSFERRIN 339 mg/dL (192-382)
[2020-09-09 19:02] LABS: FERRITIN 320.6 ng/mL (11.0-306.8)
[2020-09-10 13:42] LABS: HEPATITIS B SURFACE ANTIGEN NON-REACTIVE (NON-REACTIVE); HEPATITIS C ANTIBODY NON-REACTIVE (NON-REACTIVE)
== END 2020-09-09 23:59 | disposition home or self-care (01) ==
LOC: LAB.WCP 11:59
PROVIDERS: ATTEND Internal Medicine
DX: Z01.84 Encounter for antibody response examination (principal); D75.89 Other specified diseases of blood and blood-forming organs; R94.5 Abnormal results of liver function studies; J06.9 Acute upper respiratory infection, unspecified
CPT/HCPCS: 36415; 82607; 82728; 83540; 84466; 86704; 86769; 86803; 87340

== ENCOUNTER 2021-12-29 14:21 | Outpatient (CLI) | payer MEDICAID ==
--- NOTE | 2021-12-30 07:54 | Mammography Report ---
BILATERAL DIGITAL SCREENING MAMMOGRAM 3D/2D: 12/29/2021 CLINICAL: Routine screening. Comparison is made to exams dated: 08/17/2020 mammogram and 01/11/2016 mammogram - [facility]. There are scattered fibroglandular elements in both breasts. No significant masses, calcifications, or other findings are seen in either breast. There has been no significant interval change. IMPRESSION: NEGATIVE There is no mammographic evidence of malignancy. A 1 year screening mammogram is recommended. This exam was interpreted at Station ID: [id number]. NOTE: For mammograms, a report in lay terms will be sent to the patient. Approximately 15% of breast malignancies will not be visualized mammographically. In the management of a palpable breast mass, a negative mammogram must not discourage biopsy of a clinically suspicious lesion. Electronically Signed By: Jhonathan Westbrook M.D. ar/penrad:12/29/2021 15:04:13 ACR BI-RADS Category 1: Negative 3341F PARENCHYMAL PATTERN: (A) - The breast(s) demonstrate(s) scattered fibroglandular densities. BI-RADS CATEGORY: (1) - 1 RECOMMENDATION: (ANNUAL) - Recommend routine annual screening mammography. [id number] 1 year screening LATERALITY: (B)
== END 2021-12-29 14:22 | disposition home or self-care (01) ==
LOC: DI.N 14:21
PROVIDERS: ATTEND Internal Medicine
DX: Z12.31 Encounter for screening mammogram for malignant neoplasm of breast (principal)

== ENCOUNTER 2022-01-13 16:00 | Outpatient (CLI) | payer MEDICAID ==
[2022-01-13 18:27] LABS: BILIRUBIN,URINE NEGATIVE (NEGATIVE); GLUCOSE, URINE (UA) NEGATIVE (NEGATIVE); KETONES,URINE (UA) NEGATIVE (NEGATIVE); LEUKOCYTE ESTERASE, URINE NEGATIVE (NEGATIVE); NITRITE,URINE NEGATIVE (NEGATIVE); OCCULT BLOOD,URINE NEGATIVE (NEGATIVE); PH,URINE 5.5 PH (5.0-7.5); PROTEIN,URINE NEGATIVE (NEGATIVE); UROBILINOGEN,URINE 0.2 (NORMAL) E.U./dL (NORMAL)
[2022-01-13 18:28] LABS: CLARITY,URINE CLEAR (CLEAR)
[2022-01-13 18:41] LABS: BACTERIA,URINE None Seen /HPF (None Seen); RBC,URINE 0-5 /HPF (0-5); SQUAMOUS EPITHELIAL CELL,UR MANY Squamous (<= Few); WBC,URINE 0-3 /HPF (0-5)
== END 2022-01-13 23:59 | disposition home or self-care (01) ==
LOC: LAB.R 16:00
PROVIDERS: ATTEND Internal Medicine
DX: R10.31 Right lower quadrant pain (principal)
CPT/HCPCS: 81001; 87086

== ENCOUNTER 2022-11-09 09:58 | Outpatient (CLI) | payer MEDICAID ==
--- NOTE | 2022-11-09 10:42 | SLEEP CARE CONSULTATION ---
Information from patient questionnaire entered by Magdi Stephenson. I have reviewed and concur with the information entered by Magdi Stephenson. This document represents the service I personally performed and the decisions made by me, Radha Suresh ARNP. History of Present Illness Service Date and Time: 11/09/2022 0958 Reason for Visit: New patient Chief Complaint: reports: Snoring, Observed pauses in breathing, Other ( SAYS I SLEEP FUNNY) Date of Onset: 6 MONTHS Usual bedtime: 9-11PM Time it takes to fall asleep: 10-15MINS Snores at night: Yes Observed to quit breathing while asleep: Yes Sleeps alone due to snoring: No Number of times waking at night: 1-2 Reasons for waking at night: reports: Bathroom. denies: Choking, Snoring, Gasping for air Toss, Turn, or Twitch while sleeping: Yes Recalls having dreams: Yes Usually gets out of bed at: 6-8AM Feels refreshed in the morning: Yes Morning headache: Yes (1 time a month; AFTER IBUPROFEN) Sleepy or fatigued during the day: Yes (sometimes) Ever fallen asleep while driving: No Takes day naps: Yes (15-20 minutes, 1-2 times a week) Dreams during day naps: No Prior sleep studies: No Additional HPI information: I had the pleasure of seeing JOSE CARLOS BELL today regarding the possibility of her having a sleep disorder. Her current complaints are snoring, observed pauses in breathing and her husbands says she "sleeps funny". She states she wakes up feeling refreshed/rested. She states if she is active she does not feel tired during the day. - Parasomnia Symptoms Ever been unable to move upon waking from sleep: No Walks in sleep: No Talks in sleep: No Ever acted out dreams in sleep: No Ever felt weak in the knees when startled or emotional: Yes (sometimes) Bothered by creepy, crawly, restless sensations in legs: No Problems with memory or concentration: Yes (sometimes with memory as getting older) Subjective Initial Lowber Sleepiness Scale score: 6 (11/09/22) Past Medical History Past Medical History: reports: Hypertension, Arthritis, Anxiety, Other (LUNG DISEASE/COPD) Social History The patient's occupation is a [employer]. Patient is and lives in [place]. Have you smoked in the past 12 months: Yes Cigarettes per day (20/pack): 2 (1-1.5 ) Years of smokin Smoking Pack Years: 3.5 Alcohol use: No Caffeine use: Yes Caffeine amount and frequency: NOT VERY OFTEN Family History Family history of sleep disordered breathing: No (UNKNOWN) Allergies and Home Medications Known drug allergies: Yes (as listed) Drug allergies reviewed: Yes Home medication list reviewed: Yes Allergy and home medication list: Allergies cephalexin monohydrate * [From Keflex] Allergy (Verified 11/08/22 08:31) Hives Penicillins Allergy (Verified 11/08/22 08:31) Hives Medications: Losartan Omeprazole HCTZ Albuterol Sulfate inhaler, prn Review of Systems Weight loss over past 5 years: 25 Cardiovascular: reports: high blood pressure, irregular heart rate or pulse Respiratory: reports: shortness of breath, sputum production, chronic cough, other (COPD) Gastrointestinal: reports: heartburn Neurological: denies: headaches Psychiatric: reports: anxiety Ear/Nose/Throat: reports: wisdom teeth removed Musculoskeletal: reports: joint pain, neck pain, back pain Physical Exam Vital signs obtained and entered by: MAGDI Valdes MA Blood Pressure: 124/72 (LEFT ARM) Cuff size: regular Heart Rate: 70 O2 Saturation: 97 Height: 5 ft 4 in Weight: 147 lb 12.8 oz Body Mass Index: 25.3 BMI Classification: Overweight Neck circumference: 15 Mouth and throat: narrow oropharynx Soft palate: long Hard palate: normal Uvula: normal Uvula visualization: 25% Mallampati Class III Tongue: enlarged in size with teeth azar on lateral edges Tonsils: 1+ Neck: normal w/o lymphadenopathy or thyromegaly Heart: regular rate and rhythm Lungs: clear bilaterally Impression and Plan 1. Suspected Obstructive Sleep Apnea-Hypopnea Syndrome, as suggested by a history of irregular snoring, observed cessation of breath while asleep and cognitive impairment. Narrow oropharynx and obesity are common predisposing factors for obstructive sleep apnea-hypopnea syndrome. I recommend proceeding to polysomnography to confirm the diagnosis and to assess severity. If the patient has significant sleep disordered breathing, a manual CPAP titration study will also be performed to find the optimal treatment pressure. I informed the patient of what the sleep studies involve and after some discussion, obtained agreement to proceed. The pathophysiology of obstructive sleep apnea-hypopnea syndrome was discussed with the patient and health risks of cardiovascular and cerebrovascular disease if not treated. Risks of drowsy driving discussed in detail and patient advised to avoid long distance driving and to felt puller at the first sign of drowsiness. Patient agreed to plan. * Schedule polysomnography * Avoid long distance driving or driving when feeling sleepy. * Avoid alcohol, sedative and muscle relaxant around bedtime. * Attempt to lose weight. * Review instructions provided by trained office staff on how to prepare for the sleep study. * Return for follow-up after sleep study completed. Counseling Topics: Weight loss health impact Visit Type: In Office Time Spent with Patient (minutes): 24 Provider Statement: I spent 100% of the Face to Face Visit with the patient with greater than 50% spent counseling the patient and coordination of care.
[2022-11-09 10:49] VITALS: BP 124/72
== END 2022-11-09 09:59 | disposition home or self-care (01) ==
LOC: SC 09:58
PROVIDERS: ATTEND Nurse Practitioner Family
DX: R06.83 Snoring (principal); R06.81 Apnea, not elsewhere classified; I10 Essential (primary) hypertension; F17.210 Nicotine dependence, cigarettes, uncomplicated; E66.9 Obesity, unspecified; Z68.25 Body mass index [BMI] 25.0-25.9, adult
CPT/HCPCS: 99202; 99212

== ENCOUNTER 2023-01-01 09:44 | Outpatient (CLI) | payer MEDICAID ==
--- NOTE | 2023-01-02 12:54 | Mammography Report ---
BILATERAL DIGITAL SCREENING MAMMOGRAM 3D/2D: 01/01/2023 CLINICAL: Routine screening. Comparison is made to exams dated: 12/29/2021 mammogram, 08/17/2020 mammogram, and 01/11/2016 mammogram - [facility]. There are scattered areas of fibroglandular density in both breasts (category b / 25%-50% glandular t issue). No significant masses, calcifications, or other findings are seen in either breast. There has been no significant interval change. IMPRESSION: NEGATIVE There is no mammographic evidence of malignancy. A 1 year screening mammogram is recommended. Based on the Tyrer Cuzick model (a risk assessment model) the patients lifetime risk is 5.9% and her 10 year risk is 1.6%. According to the ACR, ACS, and NCCN guidelines, an annual breast MRI exam jason g with mammogram is recommended if the patients lifetime risk is 20% or greater. This exam was interpreted at Station ID: [id number]. NOTE: For mammograms, a report in lay terms will be sent to the patient. Approximately 15% of breast malignancies will not be visualized mammographically. In the management of a palpable breast mass, a negative mammogram must not discourage biopsy of a clinically suspicious lesion. Electronically Signed By: Armando cuevas/alexx:01/01/2023 18:27:03 letter sent: No_Letter ACR BI-RADS Category 1: Negative 3341F PARENCHYMAL PATTERN: (A) - The breast(s) demonstrate(s) scattered fibroglandular densities. BI-RADS CATEGORY: (1) - 1 Mammogram [id number] 1 year screening LATERALITY: (B)
== END 2023-01-01 09:45 | disposition home or self-care (01) ==
LOC: DI.N 09:44
PROVIDERS: ATTEND Internal Medicine
DX: Z12.31 Encounter for screening mammogram for malignant neoplasm of breast (principal)

== ENCOUNTER 2023-01-15 07:26 | Emergency (ER) | payer MEDICAID ==
--- NOTE | 2023-01-15 07:51 | ED Physician Documentation ---
PD HPI ALTERED MENTAL STATUS - Stated complaint Stated Complaint: ANXIETY,CRAVING - Chief complaint Chief Complaint: General - History obtained from History obtained from: Patient - History of Present Illness Timing - onset: How many days ago (The patient has a history of fentanyl abuse. She does not inject nor smoke but states mostly oral tablets that she buys. She is hoping to stop opioid misuse. She gets significant withdrawal symptoms and needs to use the fentanyl again. Is hoping for medically assisted therapy; methadone in past.) Timing - duration: Days (with symptoms repireved with use of fentanyl again. She states last dose was yesterday morning.) Timing - details: Gradual onset, Still present Quality / character: Agitated Associated symptoms: Headache, NVD, General weakness. No: Fever, Focal weakness Contributing factors: Substance abuse (opioids. Denies meth, cocaine, alcohol, nor DM.). No: Intoxicated, Known psych illness Basline status: Alert and oriented X 3, Ambulatory Similar symptoms before: Diagnosis (She has had opioid withdrawal in the past when trying to cut down or stop the substance use. Treatment with methadone in the past was successful several years ago. Currently back to fentanyl oral misuse.) Recently seen: Not recently seen Review of Systems Constitutional: reports: Chills, Myalgias. denies: Fever Nose: reports: Rhinorrhea / runny nose. denies: Congestion Throat: denies: Sore throat Respiratory: denies: Cough GI: reports: Nausea, Diarrhea. denies: Constipation Neurologic: reports: Generalized weakness. 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5 mg Tab] Ondansetron Odt [Zofran] 4 mg TL Q6H PRN #20 tablet 01/15/23 cloNIDine [Catapres] 0.1 mg PO BID #10 tablet 01/15/23 estradioL [Estrace] 1 mg ORAL DAILY 01/15/23 01/15/23 - Allergies Allergies/Adverse Reactions: Allergies Allergy/AdvReac Type Severity Reaction Status Date / Time cephalexin monohydrate * Allergy Hives Verified 01/15/23 07:35 [From Keflex] Penicillins Allergy Hives Verified 01/15/23 07:35 - Living Situation Living Situation: reports: With spouse/s.o. Living Arrangement: reports: At home - Social History Does the pt smoke?: Yes Smoking Status: Current every day smoker Does the pt drink ETOH?: No Does the pt have substance abuse?: Yes Substance Use and Type: Marijuana, Other (fentanyl) - Immunizations Immunizations are current?: Yes - POLST Patient has POLST: No PD ED PE NORMAL - Vitals Vital signs reviewed: Yes (HR 88, hypertensive.) - General General: Alert and oriented X 3, Well developed/nourished, Other (anxious, shaky, nauseated and restless. Elevated BP. symptoms c/w stated opioid withdrawal, with COWS + 15 (Moderate) ) - HEENT HEENT: PERRL (dilated) - Neck Neck: Supple, no meningeal sign, No adenopathy - Cardiac Cardiac: RRR, No murmur - Respiratory Respiratory: No respiratory distress, Clear bilaterally - Abdomen Abdomen: Soft, Non tender - Derm Derm: Normal color - Neuro Neuro: Alert and oriented X 3, No motor deficit, Normal speech, Other (restless and unable to sit still well, pacing. ) Eye Opening: Spontaneous Motor: Obeys Commands Verbal: Oriented GCS Score: 15 Results - Vitals Vitals: Vital Signs - 24 hr 01/15/23 01/15/23 07:35 12:59 Temperature 36.8 C 36.8 C Heart Rate 88 88 Respiratory 20 18 Rate Blood Pressure 161/98 H 130/80 O2 Saturation 99 100 Oxygen O2 Source Room air - Labs Labs: Laboratory Tests 01/15/23 01/15/23 08:10 08:10 WBC 17.1 H RBC 4.69 Hgb 15.3 Hct 44.2 MCV 94.2 MCH 32.6 H MCHC 34.6 RDW 13.1 Plt Count 307 MPV 9.2 Neut # (Auto) 13.8 H Lymph # (Auto) 2.2 [place] # (Auto) 0.9 Eos # (Auto) 0.1 Baso # (Auto) 0.1 Absolute Nucleated RBC 0.00 Nucleated RBC % 0.0 Sodium 140 Potassium 3.6 Chloride 104 Carbon Dioxide 26 Anion Gap 10.0 BUN 22 H Creatinine 0.8 Estimated GFR (MDRD) 75 L Glucose 129 H Calcium 9.7 Total Bilirubin 1.4 H AST 19 ALT 20 Alkaline Phosphatase 58 Total Protein 8.0 Albumin 4.4 Globulin 3.6 Albumin/Globulin Ratio 1.2 Lipase 27 PD Medical Decision Making - ED course Complexity details: considered differential (She states she is having withdrawal from fentanyl. She denies other substances, in particular meth and cocaine. Her last fentanyl use was yesterday morning. Having significant symptoms overnight into today.), d/w patient Social Determinants of Health: The patient with a long history of opioid misuse, in particular fentanyl. She is seeking treatment for detox and substance use. There were no spaces locally in [place] and [facility] detox has not called back as yet. She states she will avoid fentanyl at home if she has the medications for withdrawal. I told her the most common treatment regimens currently are Suboxone film strips with other adjunct medicines. Less common to find methadone treatments now. She is agreeable to try. She had tried a Suboxone film strip gotten from another person last evening and had significant nausea and vomiting with it. She was not in significant withdrawal as yet so I think she had precipitated withdrawal. Now that she is more fully having withdrawal symptoms (COWS score of 15) she should do okay with the buprenorphine. It did take several doses for her to feel more calm and. I think it was an anxiety component as well and she was given Ativan. Certainly with the concern for combined use of the buprenorphine with benzodiazepines, she was watched carefully in the ER did not have any respiratory suppression or other problems. She was here long enough to ensure no adverse interactions. Drug Therapy Requiring Monitoring for Toxicity: no adverse effects of the ativan and buprenorphine. ED course: She is having restless and nausea and abdominal cramps and shakiness consistent with opioid withdrawal. She has had the symptoms in the past and typically will redosed with fentanyl. She would like to stop substance use. She had gotten a Suboxone strip and used it overnight and states she got very nauseated with repetitive vomiting. At that time she was only having early mild withdrawal symptoms and so she likely precipitated an abrupt withdrawal. Her symptoms are more significant at this point and I believe the buprenorphine would be useful without precipitated withdrawal at this point. We can check some blood test for metabolic panel and blood count. She is not fond of needles and would prefer not an IV initially. I gave buprenorphine 9 IM as well as some Zofran and clonidine. Recheck in 30 minutes was only slightly improved on symptoms. She is more amenable to IV and I think that we will help more promptly at this point. She does report a lot of vomiting overnight so probably has some dehydration as well. An IV will be started and she will be given buprenorphine IV as well as Ativan IV as there is likely some nicotine withdrawal as well. We will give some IV fluids. We can give her a nicotine patch. At this point I believe it is a dose related and needs more medication and should help her symptoms. At that point we can have her interview with [facility] and see if they have beds available and she is amenable to a detox program. We contacted [facility] and the patient called as well. They did not have any beds available today. Possibly tomorrow or the next. We gave her the number for [facility] detox. She left a message there but they did not have anybody answer the call per se. She is awaiting a call back. She is feeling calmer at this point still feels generally weak and some mild nausea. She is not having any tremor in her vitals are good. She does seem to be more relaxed regarding the withdrawal symptoms and general anxiety. It is reasonable that she feels just generally unwell. She is calling her partner to pick her up from the ER. She should not be driving home after all the medicines. I presume she would be able to get into a detox at [facility] or [facility] over the next couple of days. We also gave her the number in a flyer from [facility] in [place] and they are able to do outpatient medically assisted therapy with Suboxone or not tract seen. Therefore I wrote a prescription for just 5 days worth of medication for nausea and opiate withdrawal with the Suboxone film strips twice daily, clonidine and Zofran. The patient is comfortable with being discharged and states she would feel going home and sleeping at this point and will await callback from the detox center. Departure - Departure Disposition: 01 Home, Self Care Clinical Impression: Opioid withdrawal without use disorder, Anxiety Condition: Stable Record reviewed to determine appropriate education?: Yes Instructions: ED Narcotic Abuse Follow-Up: [facility] [place] [Provider Group] [facility] [Provider Group] Prescriptions: LORazepam [Ativan] 1 mg PO BID PRN #10 tablet PRN Reason: Anxiety cloNIDine [Catapres] 0.1 mg PO BID #10 tablet Buprenorphine HCl/Naloxone HCl [Suboxone 8 mg-2 mg Sl Film] 1 each SL BID 5 Days #10 film Ondansetron Odt [Zofran] 4 mg TL Q6H PRN #20 tablet PRN Reason: Nausea / Vomiting Comments: I am prescribing you short-term Suboxone film strips to use twice daily. Talk with the [facility] when they call back today and you can also try it to again tomorrow and see if they have open beds as far as acute detox treatment for your opioid use withdrawal. Alternatively [facility] has a program in [place] for outpatient Suboxone or naltrexone treatment as well. I do not believe they do the methadone. I also prescribed ondansetron for nausea and clonidine to help with symptoms as well. Add lorazepam/Ativan at night if needed for sleep or up to twice daily if needed for anxiety and restlessness. Avoid nonprescribed opioids of course. I would anticipate you being able to follow-up with one of the detox centers or [facility] in the next few days which is why I wrote just a 5-day prescription for your medications with the goal of more ongoing treatment being sustained by 1 of those facilities. I sent your prescription to [facility]. Discharge Date/Time: 01/15/23 12:59
[2023-01-15] MEDS ORDERED: BUPRENORPHINE 0.3 MG/ML VIAL IM ONE (07:59)
[2023-01-15] MEDS ORDERED: cloNIDine 0.1 MG TABLET PO STA (08:01)
[2023-01-15 08:15] LABS: BASOPHILS # (AUTO) 0.1 10^3/uL (0.0-0.1); BASOPHILS % (AUTO) 0.4 %; EOSINOPHILS # (AUTO) 0.1 10^3/uL (0.0-0.7); EOSINOPHILS % (AUTO) 0.4 %; HCT - HEMATOCRIT 44.2 % (37.0-47.0); HGB - HEMOGLOBIN 15.3 g/dL (12.0-16.0); LYMPHOCYTES # (AUTO) 2.2 10^3/uL (1.5-3.5); MEAN CORPUSCULAR HEMOGLOBIN 32.6 pg (27.0-31.0); MEAN CORPUSCULAR HGB CONC 34.6 g/dL (32.0-36.0); MEAN CORPUSCULAR VOLUME 94.2 fL (81.0-99.0); MEAN PLATELET VOLUME 9.2 fL (7.9-10.8); MONOCYTES # (AUTO) 0.9 10^3/uL (0.0-1.0); MONOCYTES % (AUTO) 5.1 %; NEUTROPHILS # (AUTO) 13.8 10^3/uL (1.5-6.6); NEUTROPHILS % (AUTO) 80.6 %; PLT - PLATELET COUNT 307 10^3/uL (130-450); RED BLOOD COUNT 4.69 10^6/uL (4.20-5.40); RED CELL DISTRIBUTION WIDTH 13.1 % (12.0-15.0); WHITE BLOOD COUNT 17.1 x10^3/uL (4.8-10.8)
[2023-01-15] MEDS: ONDANSETRON ODT 4 MG TABLET TL STA ×3 (08:19→08:32)
[2023-01-15 08:27] LABS: ALBUMIN 4.4 g/dL (3.2-5.5); ALBUMIN/GLOBULIN RATIO 1.2 (1.0-2.2); BILIRUBIN,TOTAL 1.4 mg/dL (0.2-1.0); CALCIUM 9.7 mg/dL (8.5-10.3); CREATININE 0.8 mg/dL (0.4-1.0); POTASSIUM 3.6 mmol/L (3.5-5.0)
[2023-01-15] MEDS ORDERED: SODIUM CHLORIDE 0.9% 1,000 ML IV STA (09:18)
[2023-01-15] MEDS ORDERED: LORazepam 2 MG/ML VIAL IVP STA ×2 (09:23→10:18)
[2023-01-15] MEDS ORDERED: BUPRENORPHINE 0.3 MG/ML VIAL IVP ONE (09:23)
[2023-01-15] MEDS ORDERED: NICOTINE 14 MG PATCH TOP STA (09:34)
[2023-01-15] MEDS ORDERED: BUPRENORPHINE/NALOXONE 8-2 MG TAB SL STA (12:30)
[2023-01-15 13:05] VITALS: BP 130/80
== END 2023-01-15 12:59 | disposition home or self-care (01) ==
LOC: ED 07:26
DX: F11.23 Opioid dependence with withdrawal (principal); F41.9 Anxiety disorder, unspecified; F17.200 Nicotine dependence, unspecified, uncomplicated; I10 Essential (primary) hypertension; E78.00 Pure hypercholesterolemia, unspecified; J44.9 Chronic obstructive pulmonary disease, unspecified; Z79.899 Other long term (current) drug therapy
CPT/HCPCS: 36415; 80053; 83690; 85025; 96372; 96374; 96375; 96376; 99283; 99284; A9270; J0592; J2060; Q0162

== ENCOUNTER 2023-04-24 08:00 | Outpatient (CLI) | payer MEDICAID ==
--- NOTE | 2023-04-24 15:59 | XRAY Report ---
PROCEDURE: Foot 3 View BILAT INDICATIONS: BILAT FOOT 1ST MTP PAIN TECHNIQUE: 3 views of the foot were acquired. COMPARISON: None. FINDINGS: Bones: Mild to moderate first MTP degenerative changes bilaterally with valgus alignment, relatively symmetric. Plantar enthesopathy bilaterally. Soft tissues: No suspicious soft tissue calcifications IMPRESSION: Mild to moderate first MTP degenerative changes and valgus alignment. Plantar enthesopathy. Findings are relatively symmetric bilaterally. If there is high concern for further derangement, consider MRI evaluation. Reviewed by: Deangelo Ling MD on 04/24/2023 3:58 PM PDT Approved by: Deangelo Ling MD on 04/24/2023 3:58 PM PDT Station ID: [id number]
== END 2023-04-24 23:59 | disposition home or self-care (01) ==
LOC: DI.WOS 08:00
PROVIDERS: ATTEND Physician Assistant Surgical
DX: M19.072 Primary osteoarthritis, left ankle and foot (principal); M19.071 Primary osteoarthritis, right ankle and foot; M21.072 Valgus deformity, not elsewhere classified, left ankle; M21.071 Valgus deformity, not elsewhere classified, right ankle; M77.52 Other enthesopathy of left foot and ankle; M77.51 Other enthesopathy of right foot and ankle